=== PATIENT | female | born 1985 | race Caucasian/White ===

== ENCOUNTER → 2019-04-24 09:10 | Outpatient (BNVA) | payer MEDICAID, SELFPAY | PROVIDERS: PCP Nurse Practitioner; Visit Provider Obstetrics & Gynecology | DX: Z12.4 Encounter for screening for malignant neoplasm of cervix (principal); N76.0 Acute vaginitis; B96.89 Other specified bacterial agents as the cause of diseases classified elsewhere | CPT/HCPCS: 83036; 87491; 87591; 87661; 88175 ==

== ENCOUNTER → 2019-04-26 13:40 | Outpatient (BNVA) | payer MEDICAID, SELFPAY | PROVIDERS: PCP Nurse Practitioner; Referring Provider Obstetrics & Gynecology; Visit Provider Obstetrics & Gynecology | DX: N76.0 Acute vaginitis (principal); B96.89 Other specified bacterial agents as the cause of diseases classified elsewhere; R30.0 Dysuria | CPT/HCPCS: 81003; 87086; 87491; 87591 ==

== ENCOUNTER 2019-10-03 16:42 | Emergency (ER) | payer SELFPAY ==
--- NOTE | 2019-10-03 16:44 | XRR_ITS ---
PROCEDURE INFORMATION: Exam: XR Chest, 1 View Exam date and time: 10/03/2019 5:39 PM Age: 34 years old Clinical indication: Cough and dyspnea; Patient HX: Heart palpitations; Additional info: Dyspnea/cough TECHNIQUE: Imaging protocol: XR of the chest Views: 1 view. COMPARISON: No relevant prior studies available. FINDINGS: Lungs: Unremarkable. No consolidation. Pleural space: Unremarkable. No pleural effusion. No pneumothorax. Heart/Mediastinum: Unremarkable. No cardiomegaly. Bones/joints: Unremarkable. XR/XR chest 1V portable [id number] IMPRESSION: No acute findings.
[2019-10-03 17:00] VITALS: BP 156/104; PULSE 143; RESP 18; TEMP 36.9; O2SAT 96; BMI 37.8
[2019-10-03 17:33] VITALS: BP 177/120; PULSE 140; RESP 24; O2SAT 98
--- NOTE | 2019-10-03 17:34 | PC.NURSE ---
States she has been drinking a lot . Drink of choice is Vodka. Last drink approx 45 mins ago. Speech is not slurred.
--- NOTE | 2019-10-03 17:41 | ED_ITS ---
HPI - Arrhythmia/Palpitations General: Chief Complaint: Arrhythmia/Palpitations Stated Complaint: heart palps Time Seen by Provider: 10/03/19 17:28 History of Present Illness: HPI narrative: This patient is a 34-year-old female who presents today because of her heart racing. She said it is been going on for 4 days. She says that she has had this problem before when she has been drinking too much. She told triage that she had been drinking for 4 days but told me she is actually been drinking for the last 8 days. Her last drink was about 45 minutes prior to arrival. She is quite tearful about her drinking. She says she only came in today because her boyfriend finally made her come in. complaint: heart racing Onset (ago): day(s) (4) Duration: constant Severity: severe Associated symptoms: Deny nausea or vomiting Review of Systems General: Reports: 10 or more systems reviewed and unremarkable except in HPI and below Const: Denies: fever(s), chills, fatigue or malaise Eyes: Denies: change in vision ENMT: Denies: odynophagia Card: Reports: palpitations; Denies: chest pain or swelling of feet/ankles Resp: Denies: dyspnea, productive cough or non-productive cough GI: Denies: abdominal pain, nausea or vomiting : Denies: flank pain or difficulty voiding Musc: Denies: neck pain or back pain Skin/Breast: Denies: rash Neuro: Denies: headache(s), numbness in extremities or weakness in extremities Jay/Lymph: Denies: easy bruising or easy bleeding PFSH ED PFSH: Medical History Anxiety Surgical History Hx of section Family History Father Hypertension Suicide Psychiatric illness Hyperlipidemia Mother Hypertension Psychiatric illness Hyperlipidemia Grandmother Uterine cancer maternal Breast cancer paternal Psychiatric illness maternal Social History Smoking and tobacco status: current some day smoker cigarettes Packs smoked per day: 0.5 Alcohol intake: current Alcohol intake frequency: few times a week Alcohol type: hard liquor Adopted: No Caregiver/support person: No Lives independently: Yes Household members: spouse, family and children Housing: House Marital status: Life Partner Number of children: 1 Number of grandchildren: 0 Highest education level completed: Associate Degree: Academic Program service: No Current occupational status: employed and unemployed Pets and animals: No History of recent travel: No Agree to transfusion: Yes (04/03/2019) Female Reproductive History: Date of last menstrual period: 03/01/16 Physical Exam Const: COMMON NORMALS: no acute distress, patient oriented x3, no limitations and alert GENERAL APPEARANCE: cooperative and in distress HENMT: HEAD & SCALP: normal to inspection FACE & SINUS: normal facial exam Eye: GENERAL EYE: appearance normal, both eyes and all related structures Neck/C-Spine: COMMON NORMALS: supple, no meningeal signs and no JVD Chest: COMMONS NORMALS: normal inspection of the chest Resp: COMMON NORMALS: normal respiratory effort, No use of accessory muscles and clear to auscultation bilaterally AUSCULTATION: clear to auscultation bilaterally Cardio: COMMON NORMALS: no JVD, regular rhythm and No murmurs present (Cardio) RATE: tachycardic RHYTHM: regular rhythm GI: COMMON NORMALS: Normal to inspection, nondistended, normoactive bowel sounds present, Soft to palpation and non-tender INSPECTION: Yes normal to inspection AUSCULTATION: Yes normoactive bowel sounds PALPATION: Yes Soft to palpation Back/Pelvis: COMMON NORMALS: thoracic and lumbar spine normal to inspection Extremity: COMMON NORMALS: normal to inspection Neuro: COMMON NORMALS: patient oriented x3, moves all extremities, no focal motor deficits and no sensory deficits noted SENSORIUM/ORIENTATION: Yes alert MENINGEAL SIGNS: Yes no meningeal signs Psych: COMMON NORMALS: mental status grossly normal, cooperative and normal affect Skin: COMMON NORMALS: no rashes or lesions noted and turgor normal GENERAL SKIN EXAM: no rashes or lesions noted and turgor normal Course ED course: This patient understands that she has an alcohol problem. She is never had any counseling for it. We discussed various resources that were available to her. I do not think she needs to be admitted to the hospital. She is not suicidal or homicidal. After I put her up for discharge she did have some vomiting and was given more fluids and antinausea medicine. She felt better than and was discharged home. Vital Signs: Vital signs: Vital Signs Temperature 98.4 F 10/03/19 17:00 Pulse Rate 120 H 10/03/19 20:19 Respiratory Rate 20 H 10/03/19 20:19 Blood Pressure 159/100 10/03/19 20:19 Pulse Oximetry 98 10/03/19 20:19 MDM - Arrhythmia/Palpitations Lab Data: Labs: Lab Results 10/03/19 10/03/19 10/03/19 Range/Units 17:30 17:45 17:45 WBC 8.1 (4.0-10.0) 10^3/ uL RBC 4.67 (4.1-5.3) 10^6/u L Hgb 14.0 (11.5-15.3) g/dL Hct 42.9 (37.0-47.0) % MCV 91.9 (81-99) fL MCH 30.0 (28.0-34.0) pg MCHC 32.6 (30.0-36.0) g/dL RDW 12.8 (12.1-15.1) % Plt Count 397 (130-400) 10^3/c mm MPV 9.4 (7.4-10.4) fL Neut % (Auto) 54.8 % Lymph % (Auto) 34.4 % Reynolds % (Auto) 8.5 % Eos % (Auto) 0.7 % Baso % (Auto) 1.4 % Neut # (Auto) 4.45 (1.8-7.7) 10^3/u L Lymph # (Auto) 2.8 (0.8-4.8) 10^3/u L Reynolds # (Auto) 0.7 (0.2-0.9) 10^3/u L Eos # (Auto) 0.1 (0.0-0.8) 10^3/u L Baso # (Auto) 0.1 (0.0-0.1) 10^3/u L Nucleated RBC % (a uto) 0 % Nucleated RBCs # 0.0 /100WBC Specimen Type Arterial Sample Site Brachial, right ABG pH 7.45 (7.35-7.45) ABG pCO2 32.4 L (35-45) mmHg ABG pO2 90.3 (80.0-100.0) mmH g ABG HCO3 22.3 (22-26) mmol/L ABG Base Excess -0.9 (-2.0-2.0) mmol/ L Alberto Test N/a Hematocrit 45.2 (37-47) % O2 Delivery Device Room air Card Game Operator ID Gd Sodium 139 (136-145) mmol/L Potassium 3.6 (3.5-5.1) mmol/L Chloride 103 (98-107) mmol/L Carbon Dioxide 20 L (22-29) mmol/L Anion Gap 19.6 H (5-19) BUN 7 (6-20) mg/dL Creatinine 0.7 (0.5-0.9) mg/dL GFR Calculation 97.0 (90-130) mL/min Glucose 100 (65-115) mg/dL Calculated Osmolal ity 284 L (285-295) mOsm/k g Lactic Acid (0.5-2.2) mmol/L Calcium 9.0 (8.5-10.5) mg/dL Magnesium 2.0 (1.7-2.3) mg/dL Total Bilirubin 0.5 (0.15-1.2) mg/dL AST 50 H (0-32) U/L ALT 53 H (0-33) U/L Alkaline Phosphata se 57 (35-105) IU/L Total Protein 8.1 (6.6-8.7) g/dL Albumin 4.9 (3.5-5.2) g/dL Globulin 3.2 (1.3-4.6) g/dL Lipase 28 (13-60) U/L TSH 1.22 (0.27-4.20) uIU/ mL HCG, Qual (Negative) Urine Color (Yellow) Urine Appearance (CLEAR) Urine pH (5-7) Ur Specific Gravit y (1.005-1.030) Urine Protein (Negative) Urine Glucose (UA) (Normal) Urine Ketones (Negative) Urine Blood (Negative) Urine Nitrate (Negative) Urine Bilirubin (NEGATIVE) Urine Urobilinogen (Negative) mg/dL Ur Leukocyte Zita ase (Negative) Urine RBC (0-2) /hpf Urine WBC (0-5) /hpf Ur Squamous Epith Cells (0-5) Amorphous Sediment Urine Bacteria (NONE) Urine Mucus Ethyl Alcohol 338 H* (0-10) mg/dL 08/05/20 08/05/20 08/05/20 Range/Units 17:45 17:45 19:07 WBC (4.0-10.0) 10^3/ uL RBC (4.1-5.3) 10^6/u L Hgb (11.5-15.3) g/dL Hct (37.0-47.0) % MCV (81-99) fL MCH (28.0-34.0) pg MCHC (30.0-36.0) g/dL RDW (12.1-15.1) % Plt Count (130-400) 10^3/c mm MPV (7.4-10.4) fL Neut % (Auto) % Lymph % (Auto) % Reynolds % (Auto) % Eos % (Auto) % Baso % (Auto) % Neut # (Auto) (1.8-7.7) 10^3/u L Lymph # (Auto) (0.8-4.8) 10^3/u L Reynolds # (Auto) (0.2-0.9) 10^3/u L Eos # (Auto) (0.0-0.8) 10^3/u L Baso # (Auto) (0.0-0.1) 10^3/u L Nucleated RBC % (a uto) % Nucleated RBCs # /100WBC Specimen Type Sample Site ABG pH (7.35-7.45) ABG pCO2 (35-45) mmHg ABG pO2 (80.0-100.0) mmH g ABG HCO3 (22-26) mmol/L ABG Base Excess (-2.0-2.0) mmol/ L Alberto Test Hematocrit (37-47) % O2 Delivery Device Card Game Operator ID Sodium (136-145) mmol/L Potassium (3.5-5.1) mmol/L Chloride (98-107) mmol/L Carbon Dioxide (22-29) mmol/L Anion Gap (5-19) BUN (6-20) mg/dL Creatinine (0.5-0.9) mg/dL GFR Calculation (90-130) mL/min Glucose (65-115) mg/dL Calculated Osmolal ity (285-295) mOsm/k g Lactic Acid 3.4 H (0.5-2.2) mmol/L Calcium (8.5-10.5) mg/dL Magnesium (1.7-2.3) mg/dL Total Bilirubin (0.15-1.2) mg/dL AST (0-32) U/L ALT (0-33) U/L Alkaline Phosphata se (35-105) IU/L Total Protein (6.6-8.7) g/dL Albumin (3.5-5.2) g/dL Globulin (1.3-4.6) g/dL Lipase (13-60) U/L TSH (0.27-4.20) uIU/ mL HCG, Qual Negative (Negative) Urine Color Yellow (Yellow) Urine Appearance Clear (CLEAR) Urine pH 6 (5-7) Ur Specific Gravit y 1.010 (1.005-1.030) Urine Protein Neg (Negative) Urine Glucose (UA) Norm (Normal) Urine Ketones Negative (Negative) Urine Blood 2+ H (Negative) Urine Nitrate Negative (Negative) Urine Bilirubin Neg (NEGATIVE) Urine Urobilinogen Neg (Negative) mg/dL Ur Leukocyte Zita ase Negative (Negative) Urine RBC 0-4 H (0-2) /hpf Urine WBC 0-4 H (0-5) /hpf Ur Squamous Epith Cells 0-4 H (0-5) Amorphous Sediment Not Reportable Urine Bacteria Trace (NONE) Urine Mucus 1+ Ethyl Alcohol (0-10) mg/dL Discharge Plan Discharge Patient Disposition: Home Clinical Impression: Sinus tachycardia Alcohol intoxication Qualifiers: Complication of substance-induced condition: with unspecified complication Qualified Code(s): F10.929 - Alcohol use, unspecified with intoxication, unspecified Condition: Stable Prescriptions: New bupropion HCl 150 mg tablet extended release 24 hr 150 mg PO QAM Qty: 30 RF: 3 fluoxetine 60 mg tablet 60 mg PO DAILY Qty: 30 RF: 3 No Action Nexplanon 68 mg implant See Rx Instructions .ROUTE .COMPLEX RF: 0 bupropion HCl [Wellbutrin XL] 150 mg tablet extended release 24 hr 150 mg PO DAILY 30 Days Qty: 30 RF: 1 Discharge Orders: Discharge Order (Routine); Ordered 10/03/19 Ordered By: Cora Cruz Discharge Diet: Usual diet Discharge Activity: Resume usual activity Patient Instructions: Abuse of Alcohol (ED) Activity Restrictions/Additional Instructions: Please return to the emergency department for any new or worse symptoms. Our manager of case will contact you in the next few days to help with setting up follow-up. Discharge Date/Time: 10/03/19 21:04 Coding Level of Care Code ED Casing Running Machine Tender for Krzysztof Fwsheba Exam Comprehensive
[2019-10-03 17:45] LABS: ABG PCO2 32.4 mmHg (35-45); ABG PH Result 7.45 (7.35-7.45); Arterial Blood Gas Hematocrit 45.2 % (37-47); Base Excess ABG -0.9 mmol/L (-2.0-2.0); Blood Gas Operator Identificat GD; Blood Gas Sample Site Brachial, right; Blood Gas Sample Type Arterial; HCO3 ABG 22.3 mmol/L (22-26); Oxygen Device ROOM AIR; PO2 ABG 90.3 mmHg (80.0-100.0)
[2019-10-03 17:52] VITALS: BP 147/95; PULSE 129; RESP 18; O2SAT 98
[2019-10-03 17:55] LABS: Basophils # 0.1 10^3/uL (0.0-0.1); Basophils % 1.4 %; Eosinophils # 0.1 10^3/uL (0.0-0.8); Eosinophils % 0.7 %; Hematocrit 42.9 % (37.0-47.0); Lymphocytes # 2.8 10^3/uL (0.8-4.8); Lymphocytes % 34.4 %; Mean Corpuscular HGB Conc 32.6 g/dL (30.0-36.0); Mean Corpuscular Volume 91.9 fL (81-99); Mean Platelet Volume 9.4 fL (7.4-10.4); Monocytes # 0.7 10^3/uL (0.2-0.9); Monocytes % 8.5 %; Neutrophils # 4.45 10^3/uL (1.8-7.7); Neutrophils % 54.8 %; Nucleated Red Blood Cells % 0 %; Platelet Count 397 10^3/cmm (130-400); Red Blood Count 4.67 10^6/uL (4.1-5.3); Red Cell Distribution Width 12.8 % (12.1-15.1); White Blood Count 8.1 10^3/uL (4.0-10.0)
[2019-10-03 18:11] LABS: HCG, Serum Qual Negative (Negative)
[2019-10-03] MEDS: sodium chloride 0.9% 1,000 ML 999 ML IV ×2 (18:11→20:27)
[2019-10-03] MEDS: ondansetron 2 mg/ML SDV 2 mL 4 MG IVP (18:11)
[2019-10-03 18:18] VITALS: BP 159/111; PULSE 119; RESP 20; O2SAT 96
[2019-10-03 18:24] LABS: Lactic Sepsis W/Reflex 3.4 mmol/L (0.5-2.2)
[2019-10-03 18:32] LABS: Alanine Aminotransferase 53 U/L (0-33); Albumin Level 4.9 g/dL (3.5-5.2); Alkaline Phosphatase 57 IU/L (35-105); Anion Gap 19.6 (5-19); Aspartate Amino Transferase 50 U/L (0-32); Blood Urea Nitrogen 7 mg/dL (6-20); Carbon Dioxide 20 mmol/L (22-29); Chloride 103 mmol/L (98-107); Globulin 3.2 g/dL (1.3-4.6); Glucose 100 mg/dL (65-115); Lipase 28 U/L (13-60); Osmolality Calculated 284 mOsm/kg (285-295); Potassium 3.6 mmol/L (3.5-5.1); Sodium 139 mmol/L (136-145); Thyroid Stimulating Hormone 1.22 uIU/mL (0.27-4.20); Total Bilirubin 0.5 mg/dL (0.15-1.2); Total Protein 8.1 g/dL (6.6-8.7)
[2019-10-03 18:36] LABS: Alcohol Level 338 mg/dL (0-10)
[2019-10-03] MEDS: lactated ringers 1,000 ML 150 ML IV (19:01)
[2019-10-03 20:02] LABS: Add Urine Microscopic? YES; Bacteria Urine TRACE; Bilirubin Urine Neg (NEGATIVE); Blood Urine 2+ (Negative); Glucose Urine UA Norm (Normal); Ketones Urine Negative (Negative); Leukocyte Esterase Urine Negative (Negative); Nitrate Urine Negative (Negative); Protein Urine Neg (Negative); RBC Urine 0-4 /hpf (0-2); Squamous Epithelial Cell Urine 0-4 (0-5); Urine Appearance Clear (CLEAR); Urine Color Yellow (Yellow); Urobilinogen Urine Neg (Negative); WBC Urine 0-4 /hpf (0-5); pH Urine 6 (5-7)
[2019-10-03 20:03] LABS: Add Urine Culture? No; Mucus Urine 1+
[2019-10-03 20:19] VITALS: BP 159/100; PULSE 120; RESP 20; O2SAT 98
[2019-10-03] MEDS: metoclopramide 5 mg/mL SDV 2 mL 10 MG IVP (20:26)
--- NOTE | 2019-10-04 10:30 | DCPLANNER ---
complex manager had message to speak with patient about follow up. complex manager called patient, unable to speak with patient at this time, a voicemail was left for patient to return housing case manager phone call.
== END 2019-10-03 21:04 | disposition home or self-care (01) ==
PROVIDERS: Family Medicine; Emergency Provider Emergency Medicine
DX: R00.0 Tachycardia, unspecified (principal); F10.929 Alcohol use, unspecified with intoxication, unspecified; F17.210 Nicotine dependence, cigarettes, uncomplicated
CPT/HCPCS: 12345; 36600; 71045; 80053; 80307; 81001; 82803; 83605; 83690; 83735; 84443; 84703; 85025; 96365; 96366; 96375; 99283; 99284; J2405; J2765; J7030

== ENCOUNTER → 2020-12-19 13:28 | Outpatient (BNVA) | payer SELFPAY | PROVIDERS: PCP Nurse Practitioner Family; Visit Provider Nurse Practitioner Family | DX: J02.9 Acute pharyngitis, unspecified (principal) | CPT/HCPCS: 87880 ==

== ENCOUNTER 2021-01-28 12:18 | Emergency (ER) | payer SELFPAY ==
[2021-01-28 12:50] VITALS: BP 152/98; PULSE 113; RESP 18; O2SAT 97; BMI 39.9
[2021-01-28 14:23] LABS: HCG Qualitative Urine. Negative (Negative)
[2021-01-28 15:24] VITALS: BP 133/95; PULSE 104; RESP 20; O2SAT 98
--- NOTE | 2021-01-28 17:17 | W.ED.ALCOHOL ---
HPI - Alcohol General: Chief Complaint: Alcohol Stated Complaint: DRANK LAST PM: CHEST HURTING,HEART RACING,FAINT Time Seen by Provider: 01/28/21 17:17 History of Present Illness: HPI narrative: Ms. Craey is a 35-year-old lady with history of hypertension and alcohol abuse who presents to the emergency department due to chest pain and racing heart. She reports over the past few years she has been drinking more and is now a daily drinker. She endorses 5-10 drinks per day. She reports that she does this to cope with stressors however desires to quit. She has associated abdominal discomfort and vomiting. She describes burning chest pain without associated shortness of breath. No history of alcohol withdrawal seizures. No other high risk cardiac features and history. Overall symptoms have continued. Intensity is moderate. No other significant changes in health, infectious symptoms, exacerbating, alleviating, or provoking factors identified. Review of Systems General: Reports: 10 or more systems reviewed and unremarkable except in HPI and below PFSH ED PFSH: Medical History Anxiety Surgical History Hx of section Family History Father Hypertension Suicide Psychiatric illness Hyperlipidemia Mother Hypertension Psychiatric illness Hyperlipidemia Grandmother Uterine cancer maternal Breast cancer paternal Psychiatric illness maternal Social History Alcohol intake: current Alcohol intake frequency: few times a week Alcohol type: hard liquor Adopted: No Caregiver/support person: No Lives independently: Yes Household members: spouse, family and children Housing: House Marital status: Life Partner Number of children: 1 Number of grandchildren: 0 Highest education level completed: Associate Degree: Academic Program service: No Current occupational status: employed and unemployed Pets and animals: No History of recent travel: No Agree to transfusion: Yes (04/03/2019) Female Reproductive History: Date of last menstrual period: 03/01/16 Physical Exam Narrative: EXAM NARRATIVE: GENERAL/CONSTITUTIONAL -mildly ill-appearing. No acute distress. Eyes -no scleral icterus, no conjunctival injection ENMT - Atraumatic external nose and ears. Moist mucous membranes NECK - supple. trachea midline CARDIOVASCULAR -tachycardic rate and regular rhythm peripheral pulses 2+ and equal RESPIRATORY -clear to auscultation bilaterally. No retractions or accessory muscle use. ABDOMEN/GI - Nontender/Nondistended. No tenderness to percussion or evidence of peritonitis MSK - Extremities without obvious deformity or tenderness to palpation SKIN - Warm, Dry. No jaundice. NEURO - alert and appropriately oriented. Moves all extremities equally. Course ED course: - Patient was seen and evaluated by me at bedside - Patient placed on cardiac monitors, IV access obtained - Initial evaluation notable for tachycardic, nontoxic, no evidence of jaundice. - Fluids ordered - Labs notable for mild leukocytosis which is likely reactive. No transaminitis or other significant abnormality identified. - Negative chest x-ray. Based on clinical exam and patient's description of symptoms I do not believe that abdominal imaging is warranted at this time. - Upon serial reexamination after treatment the patient was improved however she did have to leave before completing IV fluids as her was called in to work - Based on patient history, evaluation, labs, and imaging as interpreted the most likely cause of the patient's condition is alcohol abuse. Low risk by heart score. - The results of ED evaluation were discussed with the patient including prescriptions and/or symptomatic cares (if applicable) including appropriate and responsible use, followup plan, and return precautions. The patient verbalized understanding and felt safe for discharge. - Patient discharged in satisfactory condition. Vital Signs: Vital signs: Vital Signs Pulse Rate 78 01/28/21 20:43 Respiratory Rate 18 01/28/21 20:43 Blood Pressure 124/78 01/28/21 20:43 Pulse Oximetry 99 01/28/21 20:43 MDM - Alcohol Medical Records: Attestation: I reviewed the patient's medical records. Lab Data: Attestation: I reviewed the patient's lab results. Labs: Lab Results 01/28/21 01/28/21 01/28/21 14:00 16:27 16:27 WBC 13.0 10^3/uL H 10 ^3/uL (4.0-10.0) RBC 4.85 10^6/uL 10^6 /uL (4.1-5.3) Hgb 14.3 g/dL g/dL (11.5-15.3) Hct 43.4 % % (37.0-47.0) MCV 89.5 fl fl (81-99) MCH 29.5 pg pg (28.0-34.0) MCHC 32.9 g/dL g/dL (30.0-36.0) RDW 12.8 % % (12.1-15.1) Plt Count 386 10^3/cmm 10^3 /cmm (130-400) MPV 10.5 fL H fL (7.4-10.4) Neut % (Auto) 67.0 % % Lymph % (Auto) 22.1 % % [place] % (Auto) 7.6 % % Eos % (Auto) 2.1 % % Baso % (Auto) 0.7 % % Neut # (Auto) 8.74 10^3/uL H 10 ^3/uL (1.8-7.7) Lymph # (Auto) 2.9 10^3/uL 10^3/ uL (0.8-4.8) [place] # (Auto) 1.0 10^3/uL H 10^ 3/uL (0.2-0.9) Eos # (Auto) 0.3 10^3/uL 10^3/ uL (0.0-0.8) Baso # (Auto) 0.1 10^3/uL 10^3/ uL (0.0-0.1) Nucleated RBC % (a uto) 0 % % Nucleated RBCs # 0.0 /100WBC /100W BC Sodium 136 mmol/L mmol/L (136-145) Potassium 3.8 mmol/L mmol/L (3.5-5.1) Chloride 102 mmol/L mmol/L (98-107) Carbon Dioxide 21 mmol/L L mmol/ L (22-29) Anion Gap 16.8 (5-19) BUN 10 mg/dL mg/dL (6-20) Creatinine 0.6 mg/dL mg/dL (0.5-0.9) GFR Calculation 115.1 mL/min mL/m in (90-130) Glucose 79 mg/dL mg/dL (65-115) Calculated Osmolal ity 280 mOsm/kg L mOs m/kg (285-295) Calcium 8.9 mg/dL mg/dL (8.5-10.5) Total Bilirubin 0.7 mg/dL mg/dL (0.15-1.2) AST 21 U/L U/L (0-32) ALT 33 U/L U/L (0-33) Alkaline Phosphata se 65 IU/L IU/L (35-105) Total Protein 7.8 g/dL g/dL (6.6-8.7) Albumin 4.6 g/dL g/dL (3.5-5.2) Globulin 3.2 g/dL g/dL (1.3-4.6) Lipase 19 U/L U/L (13-60) HCG, Qual Negative (Negative) Discharge Plan Discharge Patient Disposition: Home Clinical Impression: Alcohol abuse Condition: Stable Prescriptions: New chlordiazepoxide HCl 25 mg capsule See Rx Instructions .ROUTE .COMPLEX Qty: 15 RF: 0 No Action Nexplanon 68 mg implant See Rx Instructions .ROUTE .COMPLEX RF: 0 albuterol sulfate [ProAir HFA] 90 mcg/actuation HFA aerosol inhaler 2 puff inhalation QID PRN (Reason: shortness of breath or wheezing) Qty: 6.7 RF: 0 prednisone 20 mg tablet 20 mg PO BID Qty: 6 RF: 0 promethazine-DM 6.25-15 mg/5 mL syrup 5 - 10 ml PO Q6H PRN (Reason: cough) Qty: 118 RF: 0 bupropion HCl [Wellbutrin XL] 150 mg tablet extended release 24 hr 150 mg PO DAILY 30 Days Qty: 30 RF: 1 bupropion HCl 150 mg tablet extended release 24 hr 150 mg PO QAM Qty: 30 RF: 3 fluoxetine 60 mg tablet 60 mg PO DAILY Qty: 30 RF: 3 Discharge Orders: Discharge ED (Routine); Ordered 01/28/21 Ordered By: Ba Bush Discharge Diet: Usual diet Discharge Activity: Resume usual activity Patient Instructions: Alcohol Withdrawal (ED) Activity Restrictions/Additional Instructions: Thank you for visiting the emergency department. You were seen and evaluated for alcohol abuse and withdrawal symptoms. Please follow-up with your primary care provider. Please return to the emergency department for worsening symptoms, shakiness, racing heart, seizures, confusion, or anything else that you are concerned about and feel needs emergency department evaluation. Coding Level of Care Code ED Fun House Operator for Krzysztof Aburto
[2021-01-28 17:36] LABS: Basophils # 0.1 10^3/uL (0.0-0.1); Basophils % 0.7 %; Eosinophils # 0.3 10^3/uL (0.0-0.8); Eosinophils % 2.1 %; Hematocrit 43.4 % (37.0-47.0); Hemoglobin 14.3 g/dL (11.5-15.3); Lymphocytes # 2.9 10^3/uL (0.8-4.8); Lymphocytes % 22.1 %; Mean Corpuscular HGB Conc 32.9 g/dL (30.0-36.0); Mean Corpuscular Hemoglobin 29.5 pg (28.0-34.0); Mean Corpuscular Volume 89.5 fl (81-99); Mean Platelet Volume 10.5 fL (7.4-10.4); Monocytes % 7.6 %; Neutrophils # 8.74 10^3/uL (1.8-7.7); Nucleated Red Blood Cells % 0 %; Platelet Count 386 10^3/cmm (130-400); Red Blood Count 4.85 10^6/uL (4.1-5.3); Red Cell Distribution Width 12.8 % (12.1-15.1)
[2021-01-28 17:48] LABS: Alanine Aminotransferase 33 U/L (0-33); Albumin Level 4.6 g/dL (3.5-5.2); Alkaline Phosphatase 65 IU/L (35-105); Anion Gap 16.8 (5-19); Aspartate Amino Transferase 21 U/L (0-32); Blood Urea Nitrogen 10 mg/dL (6-20); Calcium 8.9 mg/dL (8.5-10.5); Carbon Dioxide 21 mmol/L (22-29); Chloride 102 mmol/L (98-107); Globulin 3.2 g/dL (1.3-4.6); Glomerular Filtration Rate 115.1 mL/min (90-130); Glucose 79 mg/dL (65-115); Lipase 19 U/L (13-60); Osmolality Calculated 280 mOsm/kg (285-295); Potassium 3.8 mmol/L (3.5-5.1); Sodium 136 mmol/L (136-145); Total Bilirubin 0.7 mg/dL (0.15-1.2); Total Protein 7.8 g/dL (6.6-8.7)
--- NOTE | 2021-01-28 17:57 | XRR_ITS ---
PROCEDURE INFORMATION: Exam: XR Chest Exam date and time: 01/28/2021 5:57 PM Age: 35 years old Clinical indication: Pain; Angina pectoris; Additional info: Palpatations, worried about alcohol withdrawl TECHNIQUE: Imaging protocol: XR of the chest. Views: 1 view. Total images: 1 COMPARISON: CR XR chest 1V portable [id number] 10/03/2019 5:24 PM FINDINGS: Lungs: No visible active interstitial or alveolar airspace disease. Pleural spaces: Unremarkable. No pleural effusion. No pneumothorax. Heart/Mediastinum: Cardiac structures and configuration within normal limits. Bones/joints: Unremarkable. Other findings: Obesity. XR/XR chest 1V portable [id number] IMPRESSION: Nonacute. Radiation Dose CTDIVOL = (mGy): DLP = (mGy-cm)
[2021-01-28] MEDS: sodium chloride 0.9% 1,000 ML 999 ML IV (18:36)
[2021-01-28] MEDS: ondansetron 2 mg/ML SDV 2 mL 4 MG IVP ×2 (18:36→20:17)
[2021-01-28 18:37] VITALS: PULSE 82; RESP 15; O2SAT 98
[2021-01-28 20:43] VITALS: BP 124/78; PULSE 78; RESP 18; O2SAT 99
== END 2021-01-28 20:44 | disposition home or self-care (01) ==
PROVIDERS: Emergency Provider Emergency Medicine
DX: F10.10 Alcohol abuse, uncomplicated (principal)
CPT/HCPCS: 71045; 80053; 81025; 83690; 85025; 96361; 96374; 96376; 99284; J2405; J7030

== ENCOUNTER → 2021-12-22 14:25 | Outpatient (BNVA) | payer SELFPAY | PROVIDERS: Visit Provider Nurse Practitioner Family | DX: N39.0 Urinary tract infection, site not specified (principal); R30.0 Dysuria; Z11.3 Encounter for screening for infections with a predominantly sexual mode of transmission | CPT/HCPCS: 81000; 87491; 87591; 87661 ==

== ENCOUNTER 2022-01-12 09:57 | Emergency (ER) | payer SELFPAY ==
[2022-01-12 09:58] VITALS: BP 194/110; PULSE 125; RESP 21; TEMP 37.1; O2SAT 98; BMI 42.0
[2022-01-12 10:29] LABS: Basophils # 0.1 10^3/uL (0.0-0.1); Basophils % 0.7 %; Eosinophils # 0.2 10^3/uL (0.0-0.8); Eosinophils % 2.8 %; Hematocrit 43.9 % (37.0-47.0); Hemoglobin 14.5 g/dL (11.5-15.3); Lymphocytes # 1.5 10^3/uL (0.8-4.8); Lymphocytes % 19.3 %; Mean Corpuscular Volume 90.7 fl (81-99); Mean Platelet Volume 10.5 fL (7.4-10.4); Monocytes # 0.5 10^3/uL (0.2-0.9); Neutrophils # 5.25 10^3/uL (1.8-7.7); Neutrophils % 69.8 %; Nucleated Red Blood Cells % 0 %; Platelet Count 277 10^3/cmm (130-400); Red Blood Count 4.84 10^6/uL (4.1-5.3); Red Cell Distribution Width 12.5 % (12.1-15.1); White Blood Count 7.5 10^3/uL (4.0-10.0)
--- NOTE | 2022-01-12 10:35 | W.ED.ALCOHOL ---
Documented by User: KELLI Gonzalez 01/13/22 07:17 HPI - Alcohol General: Chief Complaint: Abdominal Pain Stated Complaint: too much alcohol, abd pain Time Seen by Provider: 01/12/22 10:06 History of Present Illness: Patient is a 36-year-old female who comes to the ED with alcohol withdrawal symptoms. Patient admits to being a heavy daily alcohol user and over the past week she says she has been drinking more than usual. Her last drink was at 9:15 PM last night. Today she woke up not feeling well. She is hearing some voices, feels shaky, anxious and has had some nausea and vomiting as well. Denies any past history of DT or any other complications during alcohol detox. Associated symptoms: Reports involuntary movements (Shaky hands bilaterally-alcoholic tremors), nausea and vomiting; Deny abdominal pain or suicidal ideation Review of Systems Const: Reports: malaise; Denies: fever(s), chills or fatigue Eyes: Denies: change in vision or eye discomfort ENMT: Denies: throat pain, odynophagia, nasal discharge or nasal congestion Card: Denies: chest pain, palpitations, edema, swelling of feet/ankles, dyspnea on exertion or orthopnea Resp: Denies: dyspnea, productive cough or non-productive cough GI: Reports: nausea and vomiting; Denies: abdominal pain, diarrhea, constipation or hematochezia : Denies: flank pain, dysuria or hematuria Musc: Denies: neck pain, back pain or extremity swelling Skin/Breast: Denies: rash or new lesions Neuro: Reports: involuntary movements (Shaky hands bilaterally-alcoholic tremors); Denies: headache(s), numbness in extremities or weakness in extremities Psych: Reports: anxiety; Denies: suicidal ideation [facility] ED PFSH: Medical History Anxiety Psychiatric care Surgical History Hx of section Family History Father Hypertension Suicide Psychiatric illness Hyperlipidemia Mother Hypertension Psychiatric illness Hyperlipidemia Grandmother Uterine cancer maternal Breast cancer paternal Psychiatric illness maternal Social History Smoking and tobacco status: current every day smoker cigarettes Packs smoked per day: 0.5 Years cigarettes smoked: 17 Quit status (tobacco): has tried quititng Number of times tried to quit tobacco: 3 Second hand smoke exposure: No Smoking risk assessment/counseling performed?: No Alcohol intake: current Alcohol intake frequency: 3 or more drinks per day Alcohol type: hard liquor Desire information about alcohol rehabilitation?: No Counseling given: No Desire information about substance/drug rehabilitation?: No Counseling given: No Female Reproductive History: Date of last menstrual period: 03/01/16 Physical Exam Const: COMMON NORMALS: patient oriented x3 and alert GENERAL APPEARANCE: cooperative and anxious; no odor of alcohol detected NUTRITIONAL APPEARANCE: obese HENMT: COMMON NORMALS: normocephalic HEAD & SCALP: normocephalic MOUTH: Normal oral and palatal mucosa present THROAT: posterior oropharynx normal and uvula midline Eye: COMMON NORMALS: Equal, round and reactive pupils present, EOMs intact bilaterally and conjunctivae normal CONJUNCTIVA: Yes conjunctivae normal PUPIL: Yes Equal, round and reactive pupils present Neck/C-Spine: COMMON NORMALS: supple GENERAL: Yes normal visual inspection Resp: COMMON NORMALS: normal respiratory effort, No retractions, No use of accessory muscles and clear to auscultation bilaterally AUSCULTATION: clear to auscultation bilaterally Cardio: COMMON NORMALS: regular rate, regular rhythm, S1 normal heart sound present, S2 normal heart sound present, No gallops present (Cardio), No clicks present (Cardio), No murmurs present (Cardio) and Peripheral pulses 2+ throughout RATE: regular rate RHYTHM: regular rhythm HEART SOUNDS: S1 normal heart sound present and S2 normal heart sound present PERIPHERAL PULSES: Peripheral pulses 2+ throughout GI: COMMON NORMALS: Normal to inspection, nondistended, normoactive bowel sounds present, Soft to palpation, non-tender and no masses PALPATION: Yes Soft to palpation : COMMON NORMALS: Yes no CVA tenderness BLADDER/KIDNEY EXAM: Yes no CVA tenderness Back/Pelvis: COMMON NORMALS: no CVA tenderness Extremity: NARRATIVE EXTREMITY EXAM: Bilateral hands?alcoholic tremors noted. Neuro: COMMON NORMALS: patient oriented x3 SENSORIUM/ORIENTATION: Yes alert GAIT: Yes Normal gait present Skin: GENERAL SKIN EXAM: dry skin Course Vital Signs: Vital signs: Vital Signs Temperature 98.8 F 01/12/22 09:58 Pulse Rate 89 01/12/22 10:40 Respiratory Rate 20 H 01/12/22 10:40 Blood Pressure 145/113 01/12/22 10:40 Pulse Oximetry 98 01/12/22 10:40 Oxygen Delivery Me thod 01/12/22 09:58 MDM - Alcohol Medical Decision Making Patient is a 36-year-old female who comes to the ED with alcohol withdrawal symptoms. She denies any history of past DTs or any other complications during alcohol detox. Last drink was at 9:15 PM last night. She is having symptoms of anxiety, bilateral hand tremors, nausea and vomiting. Denies any SI. Patient's pulse was tacky at 125 but the rest of her vitals are stable during triage. Patient appears nontoxic and in no acute distress. She is alert and oriented no smell of alcohol noted. She does appear anxious with visible bilateral hand tremors. Rest of the exam is benign. Labs are unremarkable and blood alcohol level was below 10. She was given a liter of IV fluids, thiamine, Zofran and Ativan and her withdrawal symptoms improved. I discussed with patient about alcohol detox and she stated that she does want to stop drinking. Patient was diagnosed with alcohol withdrawal symptoms and she was stable for discharge home. She was sent home with a prescription for Librium and I stressed with the patient that she cannot drink alcohol while taking Librium. Told her to follow-up with her PCP within the next week for reevaluation. She understood and agreed with plan. Lab Data I reviewed the patient's lab results. : 01/12/22 10:15 01/12/22 10:44 Laboratory Results WBC 7.5 10^3/uL (4.0-10.0) 01/12/22 10:15 RBC 4.84 10^6/uL (4.1-5.3) 01/12/22 10:15 Hgb 14.5 g/dL (11.5-15.3) 01/12/22 10:15 Hct 43.9 % (37.0-47.0) 01/12/22 10:15 MCV 90.7 fl (81-99) 01/12/22 10:15 MCH 30.0 pg (28.0-34.0) 01/12/22 10:15 MCHC 33.0 g/dL (30.0-36.0) 01/12/22 10:15 RDW 12.5 % (12.1-15.1) 01/12/22 10:15 Plt Count 277 10^3/cmm (130-400) 01/12/22 10:15 MPV 10.5 fL (7.4-10.4) H 01/12/22 10:15 Neut % (Auto) 69.8 % 01/12/22 10:15 Lymph % (Auto) 19.3 % 01/12/22 10:15 [place] % (Auto) 7.0 % 01/12/22 10:15 Eos % (Auto) 2.8 % 01/12/22 10:15 Baso % (Auto) 0.7 % 01/12/22 10:15 Neut # (Auto) 5.25 10^3/uL (1.8-7.7) 01/12/22 10:15 Lymph # (Auto) 1.5 10^3/uL (0.8-4.8) 01/12/22 10:15 [place] # (Auto) 0.5 10^3/uL (0.2-0.9) 01/12/22 10:15 Eos # (Auto) 0.2 10^3/uL (0.0-0.8) 01/12/22 10:15 Baso # (Auto) 0.1 10^3/uL (0.0-0.1) 01/12/22 10:15 Nucleated RBC % (auto) 0 % 01/12/22 10:15 Nucleated RBCs # 0.0 /100WBC 01/12/22 10:15 Sodium 134 mmol/L (136-145) L 01/12/22 10:44 Potassium 4.0 mmol/L (3.5-5.1) 01/12/22 10:44 Chloride 100 mmol/L (98-107) 01/12/22 10:44 Carbon Dioxide 22 mmol/L (22-29) 01/12/22 10:44 Anion Gap 16.0 (5-19) 01/12/22 10:44 BUN 7 mg/dL (6-20) 01/12/22 10:44 Creatinine 0.6 mg/dL (0.5-0.9) 01/12/22 10:44 GFR Calculation 114.4 mL/min (90-130) 01/12/22 10:44 Glucose 98 mg/dL (65-115) 01/12/22 10:44 Calculated Osmolality 276 mOsm/kg (285-295) L 01/12/22 10:44 Calcium 8.9 mg/dL (8.5-10.5) 01/12/22 10:44 Total Bilirubin 0.6 mg/dL (0.15-1.2) 01/12/22 10:44 AST 101 U/L (0-32) H 01/12/22 10:44 ALT 69 U/L (0-33) H 01/12/22 10:44 Alkaline Phosphatase 84 U/L (35-105) 01/12/22 10:44 Total Protein 7.0 g/dL (6.6-8.7) 01/12/22 10:44 Albumin 4.0 g/dL (3.5-5.2) 01/12/22 10:44 Globulin 3.0 g/dL (1.3-4.6) 01/12/22 10:44 Lipase 23 U/L (13-60) 01/12/22 10:44 HCG, Qual Negative (Negative) 01/12/22 10:15 Urine Color Marga (Yellow) 01/12/22 10:20 Urine Appearance Clear (CLEAR) 01/12/22 10:20 Urine pH 6.5 (5-7) 01/12/22 10:20 Ur Specific [place] 1.015 (1.005-1.030) 01/12/22 10:20 Urine Protein Neg (Negative) 01/12/22 10:20 Urine Glucose (UA) Norm (Normal) 01/12/22 10:20 Urine Ketones Negative (Negative) 01/12/22 10:20 Urine Blood Trace (Negative) H 01/12/22 10:20 Urine Nitrate Negative (Negative) 01/12/22 10:20 Urine Bilirubin Neg (Negative) 01/12/22 10:20 Urine Urobilinogen Neg mg/dL (Negative) 01/12/22 10:20 Ur Leukocyte Esterase Negative (Negative) 01/12/22 10:20 Urine RBC Rare /hpf (0-2) 01/12/22 10:20 Urine WBC None /hpf (0-5) 01/12/22 10:20 Ur Squamous Epith Cells 5-10 /hpf (0-5) H 01/12/22 10:20 Amorphous Sediment Not Reportable 01/12/22 10:20 Urine Bacteria R /hpf (NONE) 01/12/22 10:20 Urine Trichomonas 1+ /hpf H 01/12/22 10:20 Ethyl Alcohol < 10 mg/dL (0-10) 01/12/22 10:44 Discharge Plan Discharge Patient Disposition: Home Clinical Impression: Alcohol withdrawal syndrome Qualifiers: Complication of substance-induced condition: uncomplicated Qualified Code(s): F10.930 - Alcohol use, unspecified with withdrawal, uncomplicated Condition: Stable Prescriptions: New ondansetron 4 mg tablet,disintegrating 4 mg PO Q8H PRN (Reason: nausea and vomiting) Qty: 20 0RF No Action naltrexone 50 mg tablet 25 mg PO DAILY Qty: 15 2RF bupropion HCl [Wellbutrin XL] 150 mg tablet extended release 24 hr 150 mg PO DAILY 30 Days Qty: 30 2RF fluoxetine 20 mg capsule 60 mg PO DAILY Qty: 90 2RF chlordiazepoxide HCl 25 mg capsule 25 mg PO QID PRN (Reason: anxiety) Qty: 20 0RF nitrofurantoin monohyd/m-cryst [Macrobid] 100 mg capsule 100 mg PO Q12H 7 Days Qty: 14 0RF Rx Instructions: must administer with a meal/food metronidazole 500 mg tablet 500 mg PO BID Qty: 14 0RF Discharge Orders: Discharge ED (Routine); Ordered 01/12/22 Ordered By: David Akhtar Discharge Diet: Regular Discharge Activity: Increase activity as tolerated Patient Instructions: Alcohol Withdrawal Activity Restrictions/Additional Instructions: Follow-up with medical provider as directed in the next 7 days for reevaluation. Do not drink any alcohol while taking Librium. Take medications as prescribed for alcohol withdrawal symptoms. Return to the ER or your medical provider if condition worsens. Please read and understand discharge instructions. Thank you for choosing [facility] for your healthcare needs today. Please realize this is an emergency room and that we are providing you with a medical screening exam and this may not be complete and all inclusive of all the testing and or work up that you may need to determine your ailment or severity of your illness. It is very important that you follow up as instructed or that you return to the Emergency Department should you have concerns or if your condition changes or worsens in any way. Stand Alone Forms: Work/School Release Coding Level of Care Code ED Silviculturist for Chg Fwd Exam Comprehensive Documented by User: Luciano Mehta DO 01/13/22 17:20 HPI - Alcohol General: Chief Complaint: Abdominal Pain Stated Complaint: too much alcohol, abd pain Time Seen by Provider: 01/12/22 10:06 PFSH ED PFSH: Medical History Anxiety Psychiatric care Surgical History Hx of section Family History Father Hypertension Suicide Psychiatric illness Hyperlipidemia Mother Hypertension Psychiatric illness Hyperlipidemia Grandmother Uterine cancer maternal Breast cancer paternal Psychiatric illness maternal Social History Smoking and tobacco status: current every day smoker cigarettes Packs smoked per day: 0.5 Years cigarettes smoked: 17 Quit status (tobacco): has tried quititng Number of times tried to quit tobacco: 3 Second hand smoke exposure: No Smoking risk assessment/counseling performed?: No Alcohol intake: current Alcohol intake frequency: 3 or more drinks per day Alcohol type: hard liquor Desire information about alcohol rehabilitation?: No Counseling given: No Desire information about substance/drug rehabilitation?: No Counseling given: No Course Vital Signs: Vital signs: Vital Signs Temperature 98.8 F 01/12/22 09:58 Pulse Rate 89 01/12/22 10:40 Respiratory Rate 20 H 01/12/22 10:40 Blood Pressure 145/113 01/12/22 10:40 Pulse Oximetry 98 01/12/22 10:40 Oxygen Delivery Me thod 01/12/22 09:58 MDM - Alcohol Medical Decision Making Patient is a 36-year-old female who comes to the ED with alcohol withdrawal symptoms. She denies any history of past DTs or any other complications during alcohol detox. Last drink was at 9:15 PM last night. She is having symptoms of anxiety, bilateral hand tremors, nausea and vomiting. Denies any SI. Patient's pulse was tacky at 125 but the rest of her vitals are stable during triage. Patient appears nontoxic and in no acute distress. She is alert and oriented no smell of alcohol noted. She does appear anxious with visible bilateral hand tremors. Rest of the exam is benign. Labs are unremarkable and blood alcohol level was below 10. She was given a liter of IV fluids, thiamine, Zofran and Ativan and her withdrawal symptoms improved. I discussed with patient about alcohol detox and she stated that she does want to stop drinking. Patient was diagnosed with alcohol withdrawal symptoms and she was stable for discharge home. She was sent home with a prescription for Librium and I stressed with the patient that she cannot drink alcohol while taking Librium. Told her to follow-up with her PCP within the next week for reevaluation. She understood and agreed with plan. Chart reviewed and patient discussed with midlevel. Agree with assessment and plan. Lab Data : 01/12/22 10:15 01/12/22 10:44 Laboratory Results WBC 7.5 10^3/uL (4.0-10.0) 01/12/22 10:15 RBC 4.84 10^6/uL (4.1-5.3) 01/12/22 10:15 Hgb 14.5 g/dL (11.5-15.3) 01/12/22 10:15 Hct 43.9 % (37.0-47.0) 01/12/22 10:15 MCV 90.7 fl (81-99) 01/12/22 10:15 MCH 30.0 pg (28.0-34.0) 01/12/22 10:15 MCHC 33.0 g/dL (30.0-36.0) 01/12/22 10:15 RDW 12.5 % (12.1-15.1) 01/12/22 10:15 Plt Count 277 10^3/cmm (130-400) 01/12/22 10:15 MPV 10.5 fL (7.4-10.4) H 01/12/22 10:15 Neut % (Auto) 69.8 % 01/12/22 10:15 Lymph % (Auto) 19.3 % 01/12/22 10:15 [place] % (Auto) 7.0 % 01/12/22 10:15 Eos % (Auto) 2.8 % 01/12/22 10:15 Baso % (Auto) 0.7 % 01/12/22 10:15 Neut # (Auto) 5.25 10^3/uL (1.8-7.7) 01/12/22 10:15 Lymph # (Auto) 1.5 10^3/uL (0.8-4.8) 01/12/22 10:15 [place] # (Auto) 0.5 10^3/uL (0.2-0.9) 01/12/22 10:15 Eos # (Auto) 0.2 10^3/uL (0.0-0.8) 01/12/22 10:15 Baso # (Auto) 0.1 10^3/uL (0.0-0.1) 01/12/22 10:15 Nucleated RBC % (auto) 0 % 01/12/22 10:15 Nucleated RBCs # 0.0 /100WBC 01/12/22 10:15 Sodium 134 mmol/L (136-145) L 01/12/22 10:44 Potassium 4.0 mmol/L (3.5-5.1) 01/12/22 10:44 Chloride 100 mmol/L (98-107) 01/12/22 10:44 Carbon Dioxide 22 mmol/L (22-29) 01/12/22 10:44 Anion Gap 16.0 (5-19) 01/12/22 10:44 BUN 7 mg/dL (6-20) 01/12/22 10:44 Creatinine 0.6 mg/dL (0.5-0.9) 01/12/22 10:44 GFR Calculation 114.4 mL/min (90-130) 01/12/22 10:44 Glucose 98 mg/dL (65-115) 01/12/22 10:44 Calculated Osmolality 276 mOsm/kg (285-295) L 01/12/22 10:44 Calcium 8.9 mg/dL (8.5-10.5) 01/12/22 10:44 Total Bilirubin 0.6 mg/dL (0.15-1.2) 01/12/22 10:44 AST 101 U/L (0-32) H 01/12/22 10:44 ALT 69 U/L (0-33) H 01/12/22 10:44 Alkaline Phosphatase 84 U/L (35-105) 01/12/22 10:44 Total Protein 7.0 g/dL (6.6-8.7) 01/12/22 10:44 Albumin 4.0 g/dL (3.5-5.2) 01/12/22 10:44 Globulin 3.0 g/dL (1.3-4.6) 01/12/22 10:44 Lipase 23 U/L (13-60) 01/12/22 10:44 HCG, Qual Negative (Negative) 01/12/22 10:15 Urine Color Marga (Yellow) 01/12/22 10:20 Urine Appearance Clear (CLEAR) 01/12/22 10:20 Urine pH 6.5 (5-7) 01/12/22 10:20 Ur Specific [place] 1.015 (1.005-1.030) 01/12/22 10:20 Urine Protein Neg (Negative) 01/12/22 10:20 Urine Glucose (UA) Norm (Normal) 01/12/22 10:20 Urine Ketones Negative (Negative) 01/12/22 10:20 Urine Blood Trace (Negative) H 01/12/22 10:20 Urine Nitrate Negative (Negative) 01/12/22 10:20 Urine Bilirubin Neg (Negative) 01/12/22 10:20 Urine Urobilinogen Neg mg/dL (Negative) 01/12/22 10:20 Ur Leukocyte Esterase Negative (Negative) 01/12/22 10:20 Urine RBC Rare /hpf (0-2) 01/12/22 10:20 Urine WBC None /hpf (0-5) 01/12/22 10:20 Ur Squamous Epith Cells 5-10 /hpf (0-5) H 01/12/22 10:20 Amorphous Sediment Not Reportable 01/12/22 10:20 Urine Bacteria R /hpf (NONE) 01/12/22 10:20 Urine Trichomonas 1+ /hpf H 01/12/22 10:20 Ethyl Alcohol < 10 mg/dL (0-10) 01/12/22 10:44 Discharge Plan Discharge Patient Disposition: Home Clinical Impression: Alcohol withdrawal syndrome Qualifiers: Complication of substance-induced condition: uncomplicated Qualified Code(s): F10.930 - Alcohol use, unspecified with withdrawal, uncomplicated Condition: Stable Prescriptions: New ondansetron 4 mg tablet,disintegrating 4 mg PO Q8H PRN (Reason: nausea and vomiting) Qty: 20 0RF No Action naltrexone 50 mg tablet 25 mg PO DAILY Qty: 15 2RF bupropion HCl [Wellbutrin XL] 150 mg tablet extended release 24 hr 150 mg PO DAILY 30 Days Qty: 30 2RF fluoxetine 20 mg capsule 60 mg PO DAILY Qty: 90 2RF chlordiazepoxide HCl 25 mg capsule 25 mg PO QID PRN (Reason: anxiety) Qty: 20 0RF nitrofurantoin monohyd/m-cryst [Macrobid] 100 mg capsule 100 mg PO Q12H 7 Days Qty: 14 0RF Rx Instructions: must administer with a meal/food metronidazole 500 mg tablet 500 mg PO BID Qty: 14 0RF Discharge Orders: Discharge ED (Routine); Ordered 01/12/22 Ordered By: David Akhtar Discharge Diet: Regular Discharge Activity: Increase activity as tolerated Patient Instructions: Alcohol Withdrawal Activity Restrictions/Additional Instructions: Follow-up with medical provider as directed in the next 7 days for reevaluation. Do not drink any alcohol while taking Librium. Take medications as prescribed for alcohol withdrawal symptoms. Return to the ER or your medical provider if condition worsens. Please read and understand discharge instructions. Thank you for choosing [facility] for your healthcare needs today. Please realize this is an emergency room and that we are providing you with a medical screening exam and this may not be complete and all inclusive of all the testing and or work up that you may need to determine your ailment or severity of your illness. It is very important that you follow up as instructed or that you return to the Emergency Department should you have concerns or if your condition changes or worsens in any way. Stand Alone Forms: Work/School Release Coding Level of Care Code ED Silviculturist for Krzysztof Fwsheba Exam Comprehensive
[2022-01-12 10:40] VITALS: BP 145/113; PULSE 89; RESP 20; O2SAT 98
[2022-01-12 10:41] LABS: HCG, Serum Qual Negative (Negative)
[2022-01-12 10:43] LABS: Add Urine Microscopic? YES; Bilirubin Urine Neg (Negative); Blood Urine Trace (Negative); Glucose Urine UA Norm (Normal); Ketones Urine Negative (Negative); Leukocyte Esterase Urine Negative (Negative); Nitrate Urine Negative (Negative); Protein Urine Neg (Negative); Specific Gravity, Urine 1.015 (1.005-1.030); Urine Appearance Clear (CLEAR); Urine Color Amber (Yellow); Urobilinogen Urine Neg (Negative); pH Urine 6.5 (5-7)
[2022-01-12] MEDS: LORazepam 2 mg/mL INJ 1 mL IVP (10:46)
[2022-01-12] MEDS: ondansetron 2 mg/ML SDV 2 mL 4 MG IVP (10:46)
[2022-01-12] MEDS: sodium chloride 0.9% 1,000 ML 999 ML IV (10:50)
[2022-01-12 10:53] LABS: Bacteria Urine R /hpf; RBC Urine RARE /hpf (0-2)
[2022-01-12 10:54] LABS: Add Urine Culture? No; Trichomonas Urine 1+ /hpf
[2022-01-12 11:09] LABS: Alanine Aminotransferase 69 U/L (0-33); Alkaline Phosphatase 84 U/L (35-105); Aspartate Amino Transferase 101 U/L (0-32); Blood Urea Nitrogen 7 mg/dL (6-20); Calcium 8.9 mg/dL (8.5-10.5); Carbon Dioxide 22 mmol/L (22-29); Chloride 100 mmol/L (98-107); Glomerular Filtration Rate 114.4 mL/min (90-130); Glucose 98 mg/dL (65-115); Lipase 23 U/L (13-60); Osmolality Calculated 276 mOsm/kg (285-295); Sodium 134 mmol/L (136-145); Total Bilirubin 0.6 mg/dL (0.15-1.2)
[2022-01-12 11:10] LABS: Alcohol Level < 10 mg/dL (0-10)
[2022-01-12] MEDS: LORazepam 1 mg Tablet PO (12:50)
== END 2022-01-12 13:07 | disposition home or self-care (01) ==
PROVIDERS: Emergency Provider Physician Assistant
DX: F10.930 Alcohol use, unspecified with withdrawal, uncomplicated (principal); F17.210 Nicotine dependence, cigarettes, uncomplicated
CPT/HCPCS: 36415; 80053; 80307; 81001; 83690; 84703; 85025; 96361; 96374; 96375; 99284; J2060; J2405; J3411; J7030

== ENCOUNTER 2022-02-25 20:12 | Emergency (ER) | payer MEDICAID, SELFPAY ==
[2022-02-25 20:40] VITALS: BP 154/104; PULSE 109; RESP 16; TEMP 35.9; O2SAT 96; BMI 41.1
[2022-02-25 20:59] LABS: Basophils # 0.1 10^3/uL (0.0-0.1); Basophils % 0.5 %; Eosinophils # 0.4 10^3/uL (0.0-0.8); Hematocrit 39.8 % (37.0-47.0); Hemoglobin 13.1 g/dL (11.5-15.3); Lymphocytes # 2.1 10^3/uL (0.8-4.8); Mean Corpuscular HGB Conc 32.9 g/dL (30.0-36.0); Mean Corpuscular Hemoglobin 28.7 pg (28.0-34.0); Mean Corpuscular Volume 87.3 fl (81-99); Mean Platelet Volume 10.2 fL (7.4-10.4); Monocytes # 0.9 10^3/uL (0.2-0.9); Neutrophils # 9.54 10^3/uL (1.8-7.7); Neutrophils % 73.1 %; Nucleated Red Blood Cells % 0 %; Platelet Count 343 10^3/cmm (130-400); Red Blood Count 4.56 10^6/uL (4.1-5.3); Red Cell Distribution Width 12.5 % (12.1-15.1); White Blood Count 13.1 10^3/uL (4.0-10.0)
[2022-02-25 21:17] LABS: HCG, Serum Qual Negative (Negative)
[2022-02-25 21:20] LABS: Alanine Aminotransferase 36 U/L (0-33); Albumin Level 4.3 g/dL (3.5-5.2); Alkaline Phosphatase 66 U/L (35-105); Aspartate Amino Transferase 27 U/L (0-32); Blood Urea Nitrogen 14 mg/dL (6-20); Calcium 9.1 mg/dL (8.5-10.5); Carbon Dioxide 20 mmol/L (22-29); Chloride 105 mmol/L (98-107); Creatinine Clr Calc Pharmacy 119.4526; Globulin 2.9 g/dL (1.3-4.6); Glomerular Filtration Rate 82.1 mL/min (90-130); Glucose 111 mg/dL (65-115); Lipase 32 U/L (13-60); Osmolality Calculated 283 mOsm/kg (285-295); Sodium 136 mmol/L (136-145); Total Bilirubin 0.2 mg/dL (0.15-1.2); Total Protein 7.2 g/dL (6.6-8.7)
--- NOTE | 2022-02-25 22:05 | CTR_ITS ---
PROCEDURE INFORMATION: Exam: CT Abdomen And Pelvis Without Contrast Exam date and time: 02/25/2022 10:22 PM Age: 36 years old Clinical indication: Nausea and vomiting; Abdominal pain; Prior surgery; Surgery type: Csection; Patient HX: C/O left flank/llq pain with n/v. ; Additional info: Flank pain/llq pain, lmp 2 1/2 weeks ago TECHNIQUE: Imaging protocol: Computed tomography of the abdomen and pelvis without contrast. Radiation optimization: All CT scans at this facility use at least one of these dose optimization techniques: automated exposure control; mA and/or kV adjustment per patient size (includes targeted exams where dose is matched to clinical indication); or iterative reconstruction. COMPARISON: CR XR chest 1V portable [id number] 01/28/2021 6:10 PM RADIATION DOSE METRICS: Total DLP (mGy-cm): 966.79 FINDINGS: Liver: The liver is unremarkable in appearance. Gallbladder and bile ducts: No calcified gallstones in the gallbladder. No gallbladder wall thickening. No pericholecystic fluid. No biliary dilatation. Pancreas: The pancreas is normal in appearance. No pancreatic duct dilatation. Spleen: The spleen is normal in size and appearance. Adrenal glands: Unremarkable. No mass. Kidneys and ureters: Bilateral nephrolithiasis. Nonobstructing renal calculi measuring up to 4 mm in diameter are present. Mild left hydroureteronephrosis. There is a 4 mm distal left ureteral calculus. Findings are consistent with left obstructive uropathy. No right hydronephrosis. Right ureter is unremarkable. Stomach and bowel: No acute gastric abnormality demonstrated. The small bowel is unremarkable as demonstrated. No acute abnormality/inflammatory change of the colon. Appendix: The appendix is normal in appearance. No evidence of appendicitis. Intraperitoneal space: No pneumoperitoneum. No significant fluid collection. Vasculature: No abdominal aortic aneurysm. Lymph nodes: No pathologically enlarged lymph nodes. Urinary bladder: Urinary bladder is unremarkable. Reproductive: Uterus and adnexa are unremarkable. Bones/joints: Unremarkable. No acute osseous abnormality. Soft tissues: Unremarkable. CT/CT kidney stone [id number] IMPRESSION: 1. Bilateral nephrolithiasis. Nonobstructing renal calculi measuring up to 4 mm in diameter are present. 2. Mild left hydroureteronephrosis. There is a 4 mm distal left ureteral calculus. Findings are consistent with left obstructive uropathy.
--- NOTE | 2022-02-25 22:09 | ED_ITS ---
HPI - Abdominal Pain General: Chief Complaint: Abdominal Pain Stated Complaint: abdomen pain Time Seen by Provider: 02/25/22 21:55 History of Present Illness: Patient comes in with abdominal pain. States that it started earlier this afternoon around 4 PM. Describes it as left lower quadrant, sharp, constant, at times severe. Denies fever, vomiting. States her last menstrual cycle was 2-1/2 weeks ago. States the pain does radiate somewhat into her back and bladder. Associated Symptoms: Reports diarrhea; Denies dysuria, fever(s), nausea and vomiting Related Data: Date of Last Menstrual Period: 03/01/16 Review of Systems Const: Denies: fever(s) or body aches Eyes: Denies: change in vision or blurry vision ENMT: Denies: throat pain or odynophagia Card: Denies: chest pain or palpitations Resp: Denies: dyspnea or productive cough GI: Reports: abdominal pain and diarrhea; Denies: nausea or vomiting : Denies: flank pain or dysuria Musc: Denies: neck pain or back pain Skin/Breast: Denies: rash or pruritus Neuro: Denies: headache(s) or numbness in extremities Psych: Denies: anxiety or change in appetite Endo: Denies: polyuria or excessive sweating PFSH ED PFSH: Medical History Anxiety Psychiatric care Surgical History Hx of section Family History Father Hypertension Suicide Psychiatric illness Hyperlipidemia Mother Hypertension Psychiatric illness Hyperlipidemia Grandmother Uterine cancer maternal Breast cancer paternal Psychiatric illness maternal Social History Smoking and tobacco status: current every day smoker cigarettes Packs smoked per day: 0.5 Years cigarettes smoked: 17 Quit status (tobacco): has tried quititng Number of times tried to quit tobacco: 3 Second hand smoke exposure: No Smoking risk assessment/counseling performed?: No Alcohol intake: current Alcohol intake frequency: 3 or more drinks per day Alcohol type: hard liquor Desire information about alcohol rehabilitation?: No Counseling given: No Desire information about substance/drug rehabilitation?: No Counseling given: No Female Reproductive History: Date of last menstrual period: 03/01/16 Physical Exam Const: COMMON NORMALS: patient oriented x3, healthy appearing and alert OTHER: Mild distress from pain HENMT: COMMON NORMALS: normocephalic and atraumatic HEAD & SCALP: normocephalic and atraumatic Eye: COMMON NORMALS: Equal, round and reactive pupils present and EOMs intact bilaterally PUPIL: Yes Equal, round and reactive pupils present Neck/C-Spine: COMMON NORMALS: full ROM and supple Resp: COMMON NORMALS: normal respiratory effort, No retractions and No use of accessory muscles Cardio: COMMON NORMALS: regular rate and regular rhythm RATE: regular rate RHYTHM: regular rhythm GI: COMMON NORMALS: Normal to inspection, nondistended, normoactive bowel sounds present, Soft to palpation and non-tender PALPATION: Yes Soft to palpation Back/Pelvis: COMMON NORMALS: thoracic and lumbar spine normal to inspection and no thoracic nor lumbar tenderness Extremity: COMMON NORMALS: normal to inspection and full ROM Neuro: COMMON NORMALS: patient oriented x3 SENSORIUM/ORIENTATION: Yes alert Psych: COMMON NORMALS: mental status grossly normal and cooperative Skin: COMMON NORMALS: no rashes or lesions noted and no wounds GENERAL SKIN EXAM: no rashes or lesions noted Course Vital Signs: Vital signs: Vital Signs Temperature 96.6 F L 02/25/22 20:40 Pulse Rate 91 02/26/22 00:31 Respiratory Rate 17 02/26/22 00:31 Blood Pressure 146/95 02/26/22 00:31 Pulse Oximetry 96 02/25/22 20:40 Oxygen Delivery Me thod 02/26/22 00:00 MDM - Abdominal Pain Medical Decision Making Patient comes in with abdominal pain. States that it started earlier this afternoon around 4 PM. Describes it as left lower quadrant, sharp, constant, at times severe. Denies fever, vomiting. States her last menstrual cycle was 2- 1/2 weeks ago. States the pain does radiate somewhat into her back and bladder. On physical exam she looks mildly uncomfortable secondary to the pain. Abdomen is soft, nontender. Will check labs, CT renal, give IV fluids, treat pain with IV Toradol, treat nausea with IV Zofran, and reassess. Awaiting CT results. Will sign out to the oncoming physician. Lab Data 02/25/22 20:55 02/25/22 20:55 Labs/Radiology: Radiology Impressions Abdomen/Pelvis CT 02/25/22 22:05 IMPRESSION: 1. Bilateral nephrolithiasis. Nonobstructing renal calculi measuring up to 4 mm in diameter are present. 2. Mild left hydroureteronephrosis. There is a 4 mm distal left ureteral calculus. Findings are consistent with left obstructive uropathy. Laboratory Results WBC 13.1 10^3/uL (4.0-10.0) H 02/25/22 20:55 RBC 4.56 10^6/uL (4.1-5.3) 02/25/22 20:55 Hgb 13.1 g/dL (11.5-15.3) 02/25/22 20:55 Hct 39.8 % (37.0-47.0) 02/25/22 20:55 MCV 87.3 fl (81-99) 02/25/22 20:55 MCH 28.7 pg (28.0-34.0) 02/25/22 20:55 MCHC 32.9 g/dL (30.0-36.0) 02/25/22 20:55 RDW 12.5 % (12.1-15.1) 02/25/22 20:55 Plt Count 343 10^3/cmm (130-400) 02/25/22 20:55 MPV 10.2 fL (7.4-10.4) 02/25/22 20:55 Neut % (Auto) 73.1 % 02/25/22 20:55 Lymph % (Auto) 16.0 % 02/25/22 20:55 [place] % (Auto) 7.0 % 02/25/22 20:55 Eos % (Auto) 3.0 % 02/25/22 20:55 Baso % (Auto) 0.5 % 02/25/22 20:55 Neut # (Auto) 9.54 10^3/uL (1.8-7.7) H 02/25/22 20:55 Lymph # (Auto) 2.1 10^3/uL (0.8-4.8) 02/25/22 20:55 [place] # (Auto) 0.9 10^3/uL (0.2-0.9) 02/25/22 20:55 Eos # (Auto) 0.4 10^3/uL (0.0-0.8) 02/25/22 20:55 Baso # (Auto) 0.1 10^3/uL (0.0-0.1) 02/25/22 20:55 Nucleated RBC % (auto) 0 % 02/25/22 20:55 Nucleated RBCs # 0.0 /100WBC 02/25/22 20:55 Sodium 136 mmol/L (136-145) 02/25/22 20:55 Potassium 4.0 mmol/L (3.5-5.1) 02/25/22 20:55 Chloride 105 mmol/L (98-107) 02/25/22 20:55 Carbon Dioxide 20 mmol/L (22-29) L 02/25/22 20:55 Anion Gap 15.0 (5-19) 02/25/22 20:55 BUN 14 mg/dL (6-20) 02/25/22 20:55 Creatinine 0.8 mg/dL (0.5-0.9) 02/25/22 20:55 GFR Calculation 82.1 mL/min (90-130) L 02/25/22 20:55 Glucose 111 mg/dL (65-115) 02/25/22 20:55 Calculated Osmolality 283 mOsm/kg (285-295) L 02/25/22 20:55 Calcium 9.1 mg/dL (8.5-10.5) 02/25/22 20:55 Total Bilirubin 0.2 mg/dL (0.15-1.2) 02/25/22 20:55 AST 27 U/L (0-32) 02/25/22 20:55 ALT 36 U/L (0-33) H 02/25/22 20:55 Alkaline Phosphatase 66 U/L (35-105) 02/25/22 20:55 Total Protein 7.2 g/dL (6.6-8.7) 02/25/22 20:55 Albumin 4.3 g/dL (3.5-5.2) 02/25/22 20:55 Globulin 2.9 g/dL (1.3-4.6) 02/25/22 20:55 Lipase 32 U/L (13-60) 02/25/22 20:55 HCG, Qual Negative (Negative) 02/25/22 20:55 Urine Color [place] (Yellow) 02/25/22 21:57 Urine Appearance Clear (CLEAR) 02/25/22 21:57 Urine pH 5 (5-7) 02/25/22 21:57 Ur Specific [place] 1.025 (1.005-1.030) 02/25/22 21:57 Urine Protein Not tested (Negative) 02/25/22 21:57 Urine Glucose (UA) Not tested (Normal) 02/25/22 21:57 Urine Ketones Not tested (Negative) H 02/25/22 21:57 Urine Blood Not tested (Negative) A 02/25/22 21:57 Urine Nitrate Not tested (Negative) A 02/25/22 21:57 Urine Bilirubin Not tested (Negative) 02/25/22 21:57 Urine Urobilinogen Not tested mg/dL (Negative) A 02/25/22 21:57 Ur Leukocyte Esterase Not tested (Negative) A 02/25/22 21:57 Urine RBC 0-4 /hpf (0-2) H 02/25/22 21:57 Urine WBC 0-4 /hpf (0-5) H 02/25/22 21:57 Ur Squamous Epith Cells 0-4 /hpf (0-5) H 02/25/22 21:57 Amorphous Sediment Not Reportable 02/25/22 21:57 Urine Bacteria Trace /hpf (NONE) 02/25/22 21:57 Urine Mucus Trace /hpf 02/25/22 21:57 Discharge Plan Discharge Patient Disposition: Home Clinical Impression: Kidney stone Condition: Stable Prescriptions: New Flomax 0.4 mg capsule 0.4 mg PO DAILY 4 Days Qty: 4 0RF hydrocodone-acetaminophen 5-325 mg tablet 1 tab PO Q6H PRN (Reason: pain) Qty: 10 0RF No Action naltrexone 50 mg tablet 25 mg PO DAILY Qty: 15 2RF bupropion HCl [Wellbutrin XL] 150 mg tablet extended release 24 hr 150 mg PO DAILY 30 Days Qty: 30 2RF fluoxetine 20 mg capsule 60 mg PO DAILY Qty: 90 2RF chlordiazepoxide HCl 25 mg capsule 25 mg PO QID PRN (Reason: anxiety) Qty: 20 0RF nitrofurantoin monohyd/m-cryst [Macrobid] 100 mg capsule 100 mg PO Q12H 7 Days Qty: 14 0RF Rx Instructions: must administer with a meal/food metronidazole 500 mg tablet 500 mg PO BID Qty: 14 0RF ondansetron 4 mg tablet,disintegrating 4 mg PO Q8H PRN (Reason: nausea and vomiting) Qty: 20 0RF Discharge Orders: Discharge ED (Routine); Ordered 02/25/22 Ordered By: Jose Shepherd Referrals: Gabriele Varma MD [Physician] - 1-3 days Discharge Diet: Advance as tolerated Discharge Activity: Resume usual activity Patient Instructions: Kidney Stones, Opioid Safety Coding Level of Care Code ED Record Center Coordinator for Chg Fwd Exam Comprehensive
[2022-02-25 22:14] LABS: Bilirubin Urine Not Tested (Negative); Blood Urine Not Tested (Negative); Glucose Urine UA Not Tested (Normal); Ketones Urine Not Tested (Negative); Nitrate Urine Not Tested (Negative); Protein Urine Not Tested (Negative); Specific Gravity, Urine 1.025 (1.005-1.030); Urine Appearance Clear (CLEAR); Urine Color Orange (Yellow); pH Urine 5 (5-7)
[2022-02-25 22:15] LABS: Add Urine Microscopic? YES; Leukocyte Esterase Urine Not Tested (Negative); Urobilinogen Urine Not Tested mg/dL (Negative)
[2022-02-25] MEDS: ketorolac 30 mg/mL INJ 15 MG IVP (22:17)
[2022-02-25] MEDS: ondansetron 2 mg/ML SDV 2 mL 4 MG IVP (22:17)
[2022-02-25] MEDS: sodium chloride 0.9% 1,000 ML 999 ML IV (22:18)
[2022-02-25 22:21] LABS: Bacteria Urine TRACE /hpf; RBC Urine 0-4 /hpf (0-2); Squamous Epithelial Cell Urine 0-4 /hpf (0-5); WBC Urine 0-4 /hpf (0-5)
[2022-02-25 22:22] LABS: Add Urine Culture? No; Mucus Urine TRACE /hpf
[2022-02-25 23:03] VITALS: RESP 17
[2022-02-25] MEDS: HYDROmorphone 1 mg/mL INJ 1 mL IVP (23:03)
[2022-02-26] VITALS: BP 146/95; PULSE 91; RESP 17
[2022-02-26] MEDS: HYDROcodone-acetaminophen 7.5-325 mg Tablet 1 TAB PO (00:02)
[2022-02-26 00:31] VITALS: BP 146/95; PULSE 91; RESP 17
--- NOTE | 2022-02-26 09:25 | DCPLANNER ---
Addendum entered by Saranya Unger 02/26/22 10:50: or nurse manager received the following message from the urology clinic regarding follow up appointment: Appt. made for 03/12/22 but pt. declined appt. she does not have her insurance worked out. Original Note: or nurse manager had message to schedule a follow up appointment for patient with urology. or nurse manager sent patients information to the front office staff at urology. Patients information will be printed and reviewed. Clinic will call patient with appointment information.
== END 2022-02-26 00:15 | disposition home or self-care (01) ==
PROVIDERS: Emergency Medicine; Emergency Provider Emergency Medicine
DX: N13.2 Hydronephrosis with renal and ureteral calculous obstruction (principal); F17.210 Nicotine dependence, cigarettes, uncomplicated
CPT/HCPCS: 36415; 74176; 80053; 81001; 83690; 84703; 85025; 96361; 96374; 96375; 99285; J1170; J1885; J2405; J7030

== ENCOUNTER 2022-04-07 09:57 | Emergency (ER) | payer MEDICAID, SELFPAY ==
[2022-04-07 09:58] VITALS: BP 152/101; PULSE 117; RESP 19; TEMP 36.8; O2SAT 97; BMI 27.4
[2022-04-07 10:00] VITALS: BP 180/119; PULSE 110; RESP 16; O2SAT 93
--- NOTE | 2022-04-07 10:12 | W.ED.ALCOHOL ---
HPI - Alcohol General: Chief Complaint: Alcohol Stated Complaint: N/V Time Seen by Provider: 04/07/22 09:59 Source: patient and EMS Mode of arrival: EMS Limitations: altered mental status (intoxicated) History of Present Illness: Patient is a 36-year-old female who presents to ED today via EMS for alcohol intoxication. Patient states her ex-fianc?'s mother called an ambulance after finding her passed out drunk by a toilet. Patient denies any injury or trauma. She has a longstanding history of alcohol abuse. Patient states she has been drinking heavily over the past several days due to her recent break-up. Patient denies drug use. She denies alcohol withdrawal symptoms. Patient states she is interested in obtaining information for [facility]. Patient denies suicidal or homicidal ideations. MD complaint: alcohol intoxication Last drink: Hours (ago) Chronic alcohol use: Yes Previous visits for alcohol intoxication: Yes Recent trauma: No Associated symptoms: Reports nausea; Deny abdominal pain or vomiting Treatments prior to arrival: anti-emetics Review of Systems Const: Denies: fever(s), chills, body aches, fatigue or malaise Card: Denies: chest pain Resp: Denies: dyspnea GI: Reports: nausea; Denies: abdominal pain, vomiting or diarrhea Musc: Denies: neck pain, back pain, extremity pain or joint pain Skin/Breast: Denies: rash Neuro: Denies: headache(s), numbness in extremities, weakness in extremities or sensory changes [facility] ED PFSH: Medical History Anxiety Psychiatric care Surgical History Hx of section Family History Father Hypertension Suicide Psychiatric illness Hyperlipidemia Mother Hypertension Psychiatric illness Hyperlipidemia Grandmother Uterine cancer maternal Breast cancer paternal Psychiatric illness maternal Social History Smoking and tobacco status: current every day smoker cigarettes Packs smoked per day: 0.5 Years cigarettes smoked: 17 Quit status (tobacco): has tried quititng Number of times tried to quit tobacco: 3 Second hand smoke exposure: No Smoking risk assessment/counseling performed?: No Alcohol intake: current Alcohol intake frequency: 3 or more drinks per day Alcohol type: hard liquor Desire information about alcohol rehabilitation?: No Counseling given: No Desire information about substance/drug rehabilitation?: No Counseling given: No Female Reproductive History: Date of last menstrual period: 03/01/16 Physical Exam Const: COMMON NORMALS: no acute distress and alert GENERAL APPEARANCE: cooperative and odor of alcohol detected NUTRITIONAL APPEARANCE: obese ORIENTATION/CONSCIOUSNESS: Yes awake, Yes oriented to person and Yes oriented to place HENMT: COMMON NORMALS: normocephalic and atraumatic HEAD & SCALP: normal to inspection, normocephalic and atraumatic Resp: COMMON NORMALS: normal respiratory effort and clear to auscultation bilaterally AUSCULTATION: clear to auscultation bilaterally Cardio: COMMON NORMALS: regular rhythm RATE: tachycardic RHYTHM: regular rhythm GI: COMMON NORMALS: Normal to inspection, nondistended, normoactive bowel sounds present, Soft to palpation and non-tender PALPATION: Yes Soft to palpation Extremity: COMMON NORMALS: normal to inspection GENERAL: Yes normal exam except as noted Neuro: STIVEN COMA SCALE: document GCS findings [place] coma scale eye opening: Spontaneous [place] coma scale verbal response: Orientated [place] coma scale motor response: Obey commands [place] coma scale total score: 15 COMMON NORMALS: moves all extremities, no focal motor deficits and no sensory deficits noted SENSORIUM/ORIENTATION: Yes alert, Yes oriented to person and Yes oriented to place GAIT: Yes Unable to assess gait Skin: COMMON NORMALS: no rashes or lesions noted GENERAL SKIN EXAM: no rashes or lesions noted Course Vital Signs: Vital signs: Vital Signs Temperature 98.3 F 04/07/22 09:58 Pulse Rate 109 H 04/07/22 11:30 Respiratory Rate 16 04/07/22 11:30 Blood Pressure 155/97 04/07/22 11:30 Pulse Oximetry 94 04/07/22 11:30 Oxygen Delivery Me thod 04/07/22 09:58 MDM - Alcohol Medical Decision Making Patient is able to converse with me appropriately. Labs showing some minor elevations to her LFTs most likely consistent with fatty liver and her chronic alcohol abuse. Alcohol is 368. She surprisingly at this level is alert and able to follow commands appropriately. I spoke to case management in regards to [facility]. They state patient will need to go to their facility (sober) and fill out paperwork and place their name on their current waiting list. Patient is cleared for discharge from an ED standpoint as soon as she has a safe ride home. Lab Data 04/07/22 10:08 04/07/22 10:08 Laboratory Results WBC 7.7 10^3/uL (4.0-10.0) 04/07/22 10:08 RBC 5.03 10^6/uL (4.1-5.3) 04/07/22 10:08 Hgb 14.2 g/dL (11.5-15.3) 04/07/22 10:08 Hct 43.8 % (37.0-47.0) 04/07/22 10:08 MCV 87.1 fl (81-99) 04/07/22 10:08 MCH 28.2 pg (28.0-34.0) 04/07/22 10:08 MCHC 32.4 g/dL (30.0-36.0) 04/07/22 10:08 RDW 13.6 % (12.1-15.1) 04/07/22 10:08 Plt Count 493 10^3/cmm (130-400) H 04/07/22 10:08 MPV 9.2 fL (7.4-10.4) 04/07/22 10:08 Neut % (Auto) 57.5 % 04/07/22 10:08 Lymph % (Auto) 33.3 % 04/07/22 10:08 [place] % (Auto) 6.4 % 04/07/22 10:08 Eos % (Auto) 1.0 % 04/07/22 10:08 Baso % (Auto) 1.3 % 04/07/22 10:08 Neut # (Auto) 4.42 10^3/uL (1.8-7.7) 04/07/22 10:08 Lymph # (Auto) 2.6 10^3/uL (0.8-4.8) 04/07/22 10:08 [place] # (Auto) 0.5 10^3/uL (0.2-0.9) 04/07/22 10:08 Eos # (Auto) 0.1 10^3/uL (0.0-0.8) 04/07/22 10:08 Baso # (Auto) 0.1 10^3/uL (0.0-0.1) 04/07/22 10:08 Nucleated RBC % (auto) 0 % 04/07/22 10:08 Nucleated RBCs # 0.0 /100WBC 04/07/22 10:08 Sodium 142 mmol/L (136-145) 04/07/22 10:08 Potassium 3.7 mmol/L (3.5-5.1) 04/07/22 10:08 Chloride 102 mmol/L (98-107) 04/07/22 10:08 Carbon Dioxide 24 mmol/L (22-29) 04/07/22 10:08 Anion Gap 19.7 (5-19) H 04/07/22 10:08 BUN 12 mg/dL (6-20) 04/07/22 10:08 Creatinine 0.7 mg/dL (0.5-0.9) 04/07/22 10:08 GFR Calculation 95.8 mL/min (90-130) 04/07/22 10:08 Glucose 113 mg/dL (65-115) 04/07/22 10:08 Calculated Osmolality 295 mOsm/kg (285-295) 04/07/22 10:08 Calcium 8.2 mg/dL (8.5-10.5) L 04/07/22 10:08 Total Bilirubin 0.3 mg/dL (0.15-1.2) 04/07/22 10:08 AST 41 U/L (0-32) H 04/07/22 10:08 ALT 35 U/L (0-33) H 04/07/22 10:08 Alkaline Phosphatase 83 U/L (35-105) 04/07/22 10:08 Creatine Kinase 95 U/L (26-192) 04/07/22 10:08 Total Protein 7.4 g/dL (6.6-8.7) 04/07/22 10:08 Albumin 4.5 g/dL (3.5-5.2) 04/07/22 10:08 Globulin 2.9 g/dL (1.3-4.6) 04/07/22 10:08 Lipase 22 U/L (13-60) 04/07/22 10:08 HCG, Qual Negative (Negative) 04/07/22 10:08 Salicylates < 0.3 mg/dL (3-10) L 04/07/22 10:08 Acetaminophen < 5.0 ug/mL (10-30) L 04/07/22 10:08 Ethyl Alcohol 368 mg/dL (0-10) H* 04/07/22 10:08 Discharge Plan Discharge Patient Disposition: Home Clinical Impression: Alcohol use disorder Alcoholic intoxication Qualifiers: Complication of substance-induced condition: uncomplicated Qualified Code(s): F10.920 - Alcohol use, unspecified with intoxication, uncomplicated Condition: Stable Prescriptions: No Action bupropion HCl [Wellbutrin XL] 150 mg tablet extended release 24 hr 150 mg PO DAILY 30 Days Qty: 30 2RF fluoxetine 20 mg capsule 60 mg PO DAILY Qty: 90 2RF ondansetron 4 mg tablet,disintegrating 4 mg PO Q8H PRN (Reason: nausea and vomiting) Qty: 20 0RF Probiotic Blend 2 billion cell-50 mg Capsule 1 cap PO DAILY Rx Instructions: give with meal/snack Discharge Orders: Discharge ED (Routine); Ordered 04/07/22 Ordered By: Donna Herndon Patient Instructions: Alcohol Intoxication (DC), Abuse of Alcohol (DC) Activity Restrictions/Additional Instructions: As we discussed if you are interested in receiving treatment for your alcohol abuse you need to go to [id number] fill out appropriate paperwork and place your name on a waiting list. Coding Level of Care Code ED Passenger Car Upholsterer Apprentice for Krzysztof Aburto
[2022-04-07] MEDS: sodium chloride 0.9% 1,000 ML 999 ML IV (10:25)
[2022-04-07 10:30] LABS: Basophils # 0.1 10^3/uL (0.0-0.1); Basophils % 1.3 %; Eosinophils # 0.1 10^3/uL (0.0-0.8); Hematocrit 43.8 % (37.0-47.0); Hemoglobin 14.2 g/dL (11.5-15.3); Lymphocytes # 2.6 10^3/uL (0.8-4.8); Lymphocytes % 33.3 %; Mean Corpuscular HGB Conc 32.4 g/dL (30.0-36.0); Mean Corpuscular Hemoglobin 28.2 pg (28.0-34.0); Mean Corpuscular Volume 87.1 fl (81-99); Mean Platelet Volume 9.2 fL (7.4-10.4); Monocytes # 0.5 10^3/uL (0.2-0.9); Monocytes % 6.4 %; Neutrophils # 4.42 10^3/uL (1.8-7.7); Neutrophils % 57.5 %; Nucleated Red Blood Cells % 0 %; Platelet Count 493 10^3/cmm (130-400); Red Blood Count 5.03 10^6/uL (4.1-5.3); Red Cell Distribution Width 13.6 % (12.1-15.1); White Blood Count 7.7 10^3/uL (4.0-10.0)
[2022-04-07 10:46] LABS: HCG, Serum Qual Negative (Negative)
[2022-04-07 10:53] LABS: Acetaminophen < 5.0 ug/mL (10-30); Alanine Aminotransferase 35 U/L (0-33); Albumin Level 4.5 g/dL (3.5-5.2); Alkaline Phosphatase 83 U/L (35-105); Anion Gap 19.7 (5-19); Aspartate Amino Transferase 41 U/L (0-32); Blood Urea Nitrogen 12 mg/dL (6-20); Calcium 8.2 mg/dL (8.5-10.5); Carbon Dioxide 24 mmol/L (22-29); Chloride 102 mmol/L (98-107); Creatine Phosphokinase 95 U/L (26-192); Globulin 2.9 g/dL (1.3-4.6); Glomerular Filtration Rate 95.8 mL/min (90-130); Glucose 113 mg/dL (65-115); Lipase 22 U/L (13-60); Osmolality Calculated 295 mOsm/kg (285-295); Potassium 3.7 mmol/L (3.5-5.1); Salicylate < 0.3 mg/dL (3-10); Sodium 142 mmol/L (136-145); Total Bilirubin 0.3 mg/dL (0.15-1.2); Total Protein 7.4 g/dL (6.6-8.7)
[2022-04-07 10:56] LABS: Alcohol Level 368 mg/dL (0-10)
[2022-04-07 11:00] VITALS: BP 132/93; RESP 16
[2022-04-07 11:30] VITALS: BP 155/97; PULSE 109; RESP 16; O2SAT 94
== END 2022-04-07 13:31 | disposition home or self-care (01) ==
PROVIDERS: Emergency Provider Physician Assistant
DX: F10.10 Alcohol abuse, uncomplicated (principal); Y90.8 Blood alcohol level of 240 mg/100 ml or more; F17.210 Nicotine dependence, cigarettes, uncomplicated
CPT/HCPCS: 80053; 80307; 82550; 83690; 84703; 85025; 96360; 99284; J7030

== ENCOUNTER 2022-04-08 11:03 | Emergency (ER) | payer MEDICAID, SELFPAY ==
[2022-04-08] VITALS (24 sets, daily range): BP systolic 145–169; BP diastolic 95–110; PULSE 88–110; RESP 12–26; O2SAT 90–100; BMI 40.1
--- NOTE | 2022-04-08 11:12 | ED.C_ITS ---
HPI - Psych General: Chief Complaint: Psychiatric Symptoms Stated Complaint: SI/ DEPRESSED/ ETOH INTOXICATION Time Seen by Provider: 04/08/22 11:12 History of Present Illness: Ms. Carey is a 36-year-old lady with history of alcohol abuse, anxiety presenting to the emergency department for depression with suicidal ideation in the context of recent break-up and alcohol abuse. She reports longstanding history of alcohol misuse however the past week as drink daily. She is drinking 15 shots approximately per day. Last drink prior to coming in. Endorses feeling increasingly depressed with inability to stop spiral. Intensity of symptoms is moderate to severe. No other specific changes in health, exacerbating, or alleviating factors identified. Onset (ago): week(s) Duration: getting worse History of same: Yes Context: recent alcohol abuse and significant life stressor Associated psychiatric symptoms: depression and suicidal ideation Review of Systems General: Reports: 10 or more systems reviewed and unremarkable except in HPI and below PFSH ED PFSH: Medical History Anxiety Psychiatric care Surgical History Hx of section Family History Father Hypertension Suicide Psychiatric illness Hyperlipidemia Mother Hypertension Psychiatric illness Hyperlipidemia Grandmother Uterine cancer maternal Breast cancer paternal Psychiatric illness maternal Social History Smoking and tobacco status: current every day smoker cigarettes Packs smoked per day: 0.5 Years cigarettes smoked: 17 Quit status (tobacco): has tried quititng Number of times tried to quit tobac co: 3 Second hand smoke exposure: No Smoking risk assessment/counseling performed?: No Alcohol intake: current Alcohol intake frequency: 3 or more drinks per day Alcohol type: hard liquor Desire information about alcohol rehabilitation?: No Counseling given: No Desire information about substance/drug rehabilitation?: No Counseling given: No Female Reproductive History: Date of last menstrual period: 03/01/16 Physical Exam Const: COMMON NORMALS: alert GENERAL APPEARANCE: cooperative and well developed HENMT: COMMON NORMALS: normocephalic and atraumatic HEAD & SCALP: normocephalic and atraumatic Eye: COMMON NORMALS: conjunctivae normal CONJUNCTIVA: Yes conjunctivae normal SCLERA: sclerae normal Neck/C-Spine: COMMON NORMALS: supple GENERAL: Yes trachea midline Resp: COMMON NORMALS: clear to auscultation bilaterally EFFORT & INSPECTION: Yes able to speak in complete sentences AUSCULTATION: clear to auscultation bilaterally Cardio: COMMON NORMALS: regular rhythm RATE: tachycardic RHYTHM: regular rhythm GI: COMMON NORMALS: Soft to palpation PALPATION: Yes Soft to palpation and No Tenderness to palpation present (GI) Extremity: GENERAL: Yes normal exam except as noted and No edema Neuro: COMMON NORMALS: moves all extremities SENSORIUM/ORIENTATION: Yes al ert and No Orientation impaired Psych: COMMON NORMALS: mental status grossly normal and Normal thought process present THOUGHT PROCESS: Normal thought process present Course Vital Signs: Vital signs: Vital Signs Pulse Rate 100 04/08/22 18:42 Respiratory Rate 13 04/08/22 18:42 Blood Pressure 145/95 04/08/22 18:42 Pulse Oximetry 95 04/08/22 18:42 Oxygen Delivery Me thod 04/08/22 11:22 MDM - Psych Medical Decision Making 36-year-old lady with history of anxiety and alcohol abuse presented to the emergency department with alcohol intoxication and suicidal ideation. She reports worsening symptoms in the context of recent relationship ending. Patient is nontoxic in appearance and calm and cooperative on exam. EKG notable for sinus rhythm, normal intervals, no concerning ST segment changes. Labs with unremarkable hematologic panel, metabolic panel with mild evidence of changes related to alcohol however no acute intervention required. TSH normal. Toxic ingestions are negative with exception of ethyl alcohol level which is 262 mg/dL. Urinalysis with no evidence of infection. UDS positive for benzodiazepines. Given worsening symptoms associated with substance abuse I believe that inpatient management is reasonable. Based on ED evaluation at this point there is no obvious condition that would preclude the patient from inpatient management psychiatric concerns/symptoms. We do not have inpatient adult psychiatric unit beds at our facility available at this time and therefore we will look for transfer. Subsequently patient decided she wanted to leave. She denies suicidal or homicidal ideation. She was provided by the psychiatry service and satisfactory for discharge. The results of ED evaluation were discussed with the patient including prescript ions and/or symptomatic cares (if applicable) including appropriate and responsible use, followup plan, and return precautions. The patient verbalized understanding and felt safe for discharge. Medical Records I reviewed the patient's medical records. Lab Data I reviewed the patient's lab results. 04/08/22 11:47 04/08/22 11:47 Laboratory Results WBC 8.8 10^3/uL (4.0-10.0) 04/08/22 11:47 RBC 4.65 10^6/uL (4.1-5.3) 04/08/22 11:47 Hgb 13.6 g/dL (11.5-15.3) 04/08/22 11:47 Hct 41.0 % (37.0-47.0) 04/08/22 11:47 MCV 88.2 fl (81-99) 04/08/22 11:47 MCH 29.2 pg (28.0-34.0) 04/08/22 11:47 MCHC 33.2 g/dL (30.0-36.0) 04/08/22 11:47 RDW 13.8 % (12.1-15.1) 04/08/22 11:47 Plt Count 374 10^3/cmm (130-400) 04/08/22 11:47 MPV 9.0 fL (7.4-10.4) 04/08/22 11:47 Neut % (Auto) 71.8 % 04/08/22 11:47 Lymph % (Auto) 19.8 % 04/08/22 11:47 Runnels % (Auto) 6.1 % 04/08/22 11:47 Eos % (Auto) 0.8 % 04/08/22 11:47 Baso % (Auto) 0.9 % 04/08/22 11:47 Neut # (Auto) 6.35 10^3/uL (1.8-7.7) 04/08/22 11:47 Lymph # (Auto) 1.8 10^3/uL (0.8-4.8) 04/08/22 11:47 Runnels # (Auto) 0.5 10^3/uL (0.2-0.9) 04/08/22 11:47 Eos # (Auto) 0.1 10^3/uL (0.0-0.8) 04/08/22 11:47 Baso # (Auto) 0.1 10^3/uL (0.0-0.1) 04/08/22 11:47 Nucleated RBC % (auto) 0 % 04/08/22 11:47 Nucleated RBCs # 0.0 /100WBC 04/08/22 11:47 Sodium 142 mmol/L (136-145) 04/08/22 11:47 Potassium 3.9 mmol/L (3.5-5.1) 04/08/22 11:47 Chloride 104 mmol/L (98-107) 04/08/22 11:47 Carbon Dioxide 22 mmol/L (22-29) 04/08/22 11:47 Anion Gap 19.9 (5-19) H 04/08/22 11:47 BUN 11 mg/dL (6-20) 04/08/22 11:47 Creatinine 0.6 mg/dL (0.5-0.9) 04/08/22 11:47 GFR Calculation 114.4 mL/min (90-130) 04/08/22 11:47 Glucose 101 mg/dL (65-115) 04/08/22 11:47 Calculated Osmolality 294 mOsm/kg (285-295) 04/08/22 11:47 Calcium 8.0 mg/dL (8.5-10.5) L 04/08/22 11:47 Total Bilirubin 0.4 mg/dL (0.15-1.2) 04/08/22 11:47 AST 41 U/L (0-32) H 04/08/22 11:47 ALT 33 U/L (0-33) 04/08/22 11:47 Alkaline Phosphatase 79 U/L (35-105) 04/08/22 11:47 Total Protein 7.1 g/dL (6.6-8.7) 04/08/22 11:47 Albumin 4.2 g/dL (3.5-5.2) 04/08/22 11:47 Globulin 2.9 g/dL (1.3-4.6) 04/08/22 11:47 TSH 0.83 uIU/mL (0.27-4.20) 04/08/22 11:47 HCG, Qual Negative (Negative) 04/08/22 13:14 Urine Color Yellow (Yellow) 04/08/22 13:14 Urine Appearance Clear (CLEAR) 04/08/22 13:14 Urine pH 6 (5-7) 04/08/22 13:14 Ur Specific [place] 1.020 (1.005-1.030) 04/08/22 13:14 Urine Protein Trace (Negative) 04/08/22 13:14 Urine Glucose (UA) Norm (Normal) 04/08/22 13:14 Urine Ketones 1+ (Negative) H 04/08/22 13:14 Urine Blood Neg (Negative) 04/08/22 13:14 Urine Nitrate Negative (Negative) 04/08/22 13:14 Urine Bilirubin Neg (Negative) 04/08/22 13:14 Urine Urobilinogen 1 mg/dL (Negative) H 04/08/22 13:14 Ur Leukocyte Esterase Negative (Negative) 04/08/22 13:14 Urine RBC 0-4 /hpf (0-2) H 04/08/22 13:14 Urine WBC 0-4 /hpf (0-5) H 04/08/22 13:14 Ur Squamous Epith Cells 0-4 /hpf (0-5) H 04/08/22 13:14 Amorphous Sediment Not Reportable 04/08/22 13:14 Urine Bacteria 1+ /hpf (NONE) H 04/08/22 13:14 Salicylates 1.1 mg/dL (3-10) L 04/08/22 11:47 Urine Opiates Screen Negative ng/mL (Negative) 04/08/22 13:14 Acetaminophen < 5.0 ug/mL (10-30) L 04/08/22 11:47 Ur Barbiturates Screen Negative ng/mL (Negative) 04/08/22 13:14 Ur Phencyclidine Scrn Negative ng/mL (Negative) 04/08/22 13:14 Ur Amphetamines Screen Negative ng/mL (Negative) 04/08/22 13:14 U Benzodiazepines Scrn Positive ng/mL (Negative) H 04/08/22 13:14 Urine Cocaine Screen Negative ng/mL (Negative) 04/08/22 13:14 U Marijuana (THC) Screen Negative ng/mL (Negative) 04/08/22 13:14 Ethyl Alcohol 262 mg/dL (0-10) H 04/08/22 11:47 Influenza Type A Ag negative (Negative) 04/08/22 12:51 Influenza Type B Ag negative (Negative) 04/08/22 12:51 SARS-CoV-2 Ag (Rapid) negative (Negative) 04/08/22 12:51 Discharge Plan Discharge Patient Disposition: Home Clinical Impression: Alcoholic intoxication, Alcohol use disorder, Depression Condition: Stable Prescriptions: No Action bupropion HCl [Wellbutrin XL] 150 mg tablet extended release 24 hr 150 mg PO DAILY 30 Days Qty: 30 1RF fluoxetine 20 mg capsule 60 mg PO DAILY Qty: 90 1RF ondansetron 4 mg tablet,disintegrating 4 mg PO Q8H PRN (Reason: nausea and vomiting) Qty: 20 0RF Probiotic Blend 2 billion cell-50 mg Capsule 1 cap PO DAILY Rx Instructions: give with meal/snack Discharge Orders: Discharge ED (Routine); Ordered 04/08/22 Ordered By: Ba Bush Discharge Diet: Usual diet Discharge Activity: Resume usual activity Patient Instructions: Depression (ED), Abuse of Alcohol (ED) Activity Restrictions/Additional Instructions: Thank you for visiting the emergency department. You were seen and evaluated for abuse of alcohol, alcohol intoxication, and depression. After ED evaluation and evaluation by the psychiatry service we will plan to leave. Please follow-up with your primary care provider. Please stop using alcohol, failure to stop using alcohol will likely lead to or worse. Given your alcohol level you should not drive or operate any machinery for 24 hours, I also recommend going to a location where someone can watch it closely. Return to the emergency department for anything that you are concerned about and feel needs emergency department evaluation. Coding Level of Care Code ED Teacher Advisor for Krzysztof Aburto
[2022-04-08 12:02] LABS: Basophils # 0.1 10^3/uL (0.0-0.1); Basophils % 0.9 %; Eosinophils # 0.1 10^3/uL (0.0-0.8); Eosinophils % 0.8 %; Hemoglobin 13.6 g/dL (11.5-15.3); Lymphocytes # 1.8 10^3/uL (0.8-4.8); Lymphocytes % 19.8 %; Mean Corpuscular HGB Conc 33.2 g/dL (30.0-36.0); Mean Corpuscular Hemoglobin 29.2 pg (28.0-34.0); Mean Corpuscular Volume 88.2 fl (81-99); Monocytes # 0.5 10^3/uL (0.2-0.9); Monocytes % 6.1 %; Neutrophils # 6.35 10^3/uL (1.8-7.7); Neutrophils % 71.8 %; Nucleated Red Blood Cells % 0 %; Platelet Count 374 10^3/cmm (130-400); Red Blood Count 4.65 10^6/uL (4.1-5.3); Red Cell Distribution Width 13.8 % (12.1-15.1); White Blood Count 8.8 10^3/uL (4.0-10.0)
--- NOTE | 2022-04-08 12:06 | ECG_ITS ---
[facility] Test Date: 2022-04-08 Pat Name: Alisa Carey Department: Room: Gender: Female Clocksmith: : 1985 Requested By: Ba Bush Order Number: [id number] Rowland MD: Vanessa Adams M.D. Measurements Intervals [place] Rate: 94 P: 57 NH: 176 QRS: -7 QRSD: 92 T: 38 QT: 361 QTc: 452 Interpretive Statements SINUS RHYTHM No previous ECG available for comparison Electronically Signed On 04-09-2022 7:56:45 MARKETING PROGRAMS SPECIALIST by Vanessa Adams M.D. [id number]
[2022-04-08 12:32] LABS: Alanine Aminotransferase 33 U/L (0-33); Albumin Level 4.2 g/dL (3.5-5.2); Alcohol Level 262 mg/dL (0-10); Alkaline Phosphatase 79 U/L (35-105); Anion Gap 19.9 (5-19); Aspartate Amino Transferase 41 U/L (0-32); Blood Urea Nitrogen 11 mg/dL (6-20); Carbon Dioxide 22 mmol/L (22-29); Chloride 104 mmol/L (98-107); Globulin 2.9 g/dL (1.3-4.6); Glomerular Filtration Rate 114.4 mL/min (90-130); Glucose 101 mg/dL (65-115); Osmolality Calculated 294 mOsm/kg (285-295); Potassium 3.9 mmol/L (3.5-5.1); Salicylate 1.1 mg/dL (3-10); Sodium 142 mmol/L (136-145); Thyroid Stimulating Hormone 0.83 uIU/mL (0.27-4.20); Total Bilirubin 0.4 mg/dL (0.15-1.2); Total Protein 7.1 g/dL (6.6-8.7)
[2022-04-08 12:34] LABS: Acetaminophen < 5.0 ug/mL (10-30)
[2022-04-08] MEDS: ondansetron 2 mg/ML SDV 2 mL 4 MG IVP (12:44)
[2022-04-08] MEDS: sodium chloride 0.9% 1,000 ML 999 ML IV (12:44)
[2022-04-08 13:49] LABS: HCG Qualitative Urine. Negative (Negative)
[2022-04-08 14:01] LABS: Amphetamines Screen Urine Negative (Negative); Barbiturates Screen Urine Negative (Negative); Benzodiazepines Screen Urine Positive (Negative); Cocaine Screen Urine Negative (Negative); Opiate Screen Urine Negative (Negative); PCP Screen Urine Negative (Negative); THC Screen Urine Negative (Negative)
[2022-04-08 14:45] LABS: Add Urine Microscopic? YES; Bacteria Urine 1+ /hpf; Bilirubin Urine Neg (Negative); Blood Urine Neg (Negative); Glucose Urine UA Norm (Normal); Ketones Urine 1+ (Negative); Leukocyte Esterase Urine Negative (Negative); Nitrate Urine Negative (Negative); Protein Urine Trace (Negative); RBC Urine 0-4 /hpf (0-2); Squamous Epithelial Cell Urine 0-4 /hpf (0-5); Urine Appearance Clear (CLEAR); Urine Color Yellow (Yellow); Urobilinogen Urine 1 mg/dL (Negative); WBC Urine 0-4 /hpf (0-5); pH Urine 6 (5-7)
[2022-04-08 14:46] LABS: Add Urine Culture? No
[2022-04-08] MEDS: metoclopramide 5 mg/mL SDV 2 mL 10 MG IVP (14:47)
[2022-04-08 14:52] LABS: Influenza A by IFA negative (Negative); Influenza B by IFA negative (Negative); SARS Covid-2 Antigen negative (Negative)
== END 2022-04-08 17:45 | disposition home or self-care (01) ==
PROVIDERS: Emergency Provider Emergency Medicine
DX: F10.929 Alcohol use, unspecified with intoxication, unspecified (principal); Y90.8 Blood alcohol level of 240 mg/100 ml or more; Z20.822 Contact with and (suspected) exposure to COVID-19; F17.210 Nicotine dependence, cigarettes, uncomplicated
CPT/HCPCS: 36415; 80053; 80306; 80307; 81001; 81025; 84443; 85025; 87426; 87804; 93005; 96361; 96374; 96375; 99284; J2405; J2765; J7030

== ENCOUNTER → 2022-05-26 14:15 | Outpatient (BNVA) | payer OTHER, SELFPAY | PROVIDERS: Visit Provider Nurse Practitioner Psychiatric/Mental Health | DX: Z79.899 Other long term (current) drug therapy (principal); F10.20 Alcohol dependence, uncomplicated; F33.1 Major depressive disorder, recurrent, moderate; F41.1 Generalized anxiety disorder; F40.10 Social phobia, unspecified; F17.218 Nicotine dependence, cigarettes, with other nicotine-induced disorders | CPT/HCPCS: 80053; 82607; 82652 ==

== ENCOUNTER → 2022-06-01 16:00 | Outpatient (BNVA) | payer MEDICAID, SELFPAY | PROVIDERS: Visit Provider Family Medicine | DX: D23.62 Other benign neoplasm of skin of left upper limb, including shoulder (principal) | CPT/HCPCS: 88304; 88342 ==

== ENCOUNTER → 2022-06-22 14:00 | Outpatient (BNVA) | payer MEDICAID, SELFPAY | PROVIDERS: Visit Provider Nurse Practitioner Women's Health | DX: Z32.00 Encounter for pregnancy test, result unknown (principal); Z20.2 Contact with and (suspected) exposure to infections with a predominantly sexual mode of transmission | CPT/HCPCS: 81025; 87491; 87591; 87661 ==

== ENCOUNTER → 2022-07-05 13:03 | Outpatient (BNVA) | payer MEDICAID, SELFPAY | PROVIDERS: Referring Provider Family Medicine; Visit Provider Nurse Practitioner Family | DX: D22.39 Melanocytic nevi of other parts of face (principal); L81.4 Other melanin hyperpigmentation; D22.5 Melanocytic nevi of trunk; Z71.89 Other specified counseling; L55.9 Sunburn, unspecified; L72.0 Epidermal cyst; D23.62 Other benign neoplasm of skin of left upper limb, including shoulder | CPT/HCPCS: 11102; 99203 ==

== ENCOUNTER → 2022-07-13 12:12 | Outpatient (BNVA) | payer MEDICAID, SELFPAY | PROVIDERS: Visit Provider Nurse Practitioner Women's Health | DX: Z36.87 Encounter for antenatal screening for uncertain dates (principal); Z34.91 Encounter for supervision of normal pregnancy, unspecified, first trimester; Z3A.01 Less than 8 weeks gestation of pregnancy | CPT/HCPCS: 76817; 84315 ==

== ENCOUNTER → 2022-08-09 12:09 | Outpatient (BNVA) | payer MEDICAID, SELFPAY | PROVIDERS: Visit Provider Obstetrics & Gynecology | DX: Z34.80 Encounter for supervision of other normal pregnancy, unspecified trimester (principal) | CPT/HCPCS: 80307; 81000; 82950; 85027; 86592; 86762; 86803; 86850; 86900; 87086; 87340; 87624; 87806 ==

== ENCOUNTER → 2022-08-29 15:05 | Outpatient (BNVA) | payer MEDICAID, SELFPAY | PROVIDERS: Visit Provider Emergency Medicine | DX: R39.9 Unspecified symptoms and signs involving the genitourinary system (principal); N30.00 Acute cystitis without hematuria | CPT/HCPCS: 81000; 87086 ==

== ENCOUNTER → 2022-09-02 10:40 | Outpatient (BNVA) | payer MEDICAID, SELFPAY | PROVIDERS: Visit Provider Obstetrics & Gynecology | DX: Z34.80 Encounter for supervision of other normal pregnancy, unspecified trimester (principal) | CPT/HCPCS: 81000 ==

== ENCOUNTER → 2022-09-30 14:31 | Outpatient (BNVA) | payer MEDICAID, SELFPAY | PROVIDERS: Visit Provider Obstetrics & Gynecology | DX: Z34.80 Encounter for supervision of other normal pregnancy, unspecified trimester (principal) | CPT/HCPCS: 76805; 87086 ==

== ENCOUNTER → 2022-10-19 13:24 | Outpatient (BNVA) | payer MEDICAID, SELFPAY | PROVIDERS: Visit Provider Obstetrics & Gynecology | DX: Z34.80 Encounter for supervision of other normal pregnancy, unspecified trimester (principal) | CPT/HCPCS: 81000 ==

== ENCOUNTER → 2022-10-28 11:17 | Outpatient (BNVA) | payer MEDICAID, SELFPAY | PROVIDERS: Visit Provider Nurse Practitioner Women's Health | DX: Z34.90 Encounter for supervision of normal pregnancy, unspecified, unspecified trimester (principal) | CPT/HCPCS: 76816 ==

== ENCOUNTER → 2022-11-16 10:25 | Outpatient (BNVA) | payer MEDICAID, SELFPAY | PROVIDERS: Visit Provider Nurse Practitioner Women's Health | DX: Z34.80 Encounter for supervision of other normal pregnancy, unspecified trimester (principal); A59.9 Trichomoniasis, unspecified | CPT/HCPCS: 80307; 81000; 87491; 87591 ==

== ENCOUNTER → 2022-12-01 11:37 | Outpatient (BNVA) | payer MEDICAID, SELFPAY | PROVIDERS: Visit Provider Obstetrics & Gynecology | DX: Z34.80 Encounter for supervision of other normal pregnancy, unspecified trimester (principal) | CPT/HCPCS: 81000; 82950; 85025 ==

== ENCOUNTER → 2022-12-10 13:46 | Outpatient (BNVA) | payer MEDICAID, SELFPAY | PROVIDERS: Visit Provider Obstetrics & Gynecology | DX: Z34.80 Encounter for supervision of other normal pregnancy, unspecified trimester (principal); R31.9 Hematuria, unspecified | CPT/HCPCS: 81000; 87086 ==

== ENCOUNTER → 2022-12-15 11:50 | Outpatient (BNVA) | payer MEDICAID, SELFPAY | PROVIDERS: Visit Provider Obstetrics & Gynecology | DX: Z34.80 Encounter for supervision of other normal pregnancy, unspecified trimester (principal) | CPT/HCPCS: 81000 ==

== ENCOUNTER → 2023-01-05 12:59 | Outpatient (BNVA) | payer MEDICAID, SELFPAY | PROVIDERS: Visit Provider Obstetrics & Gynecology | DX: Z34.80 Encounter for supervision of other normal pregnancy, unspecified trimester (principal) | CPT/HCPCS: 81000 ==

== ENCOUNTER → 2023-01-12 14:10 | Outpatient (BNVA) | payer MEDICAID, SELFPAY | PROVIDERS: Visit Provider Nurse Practitioner Women's Health | DX: Z34.80 Encounter for supervision of other normal pregnancy, unspecified trimester (principal) | CPT/HCPCS: 81000 ==

== ENCOUNTER → 2023-01-26 09:10 | Outpatient (BNVA) | payer MEDICAID, SELFPAY | PROVIDERS: Visit Provider Obstetrics & Gynecology | DX: Z34.80 Encounter for supervision of other normal pregnancy, unspecified trimester (principal) | CPT/HCPCS: 81000; 87081 ==

== ENCOUNTER → 2023-02-02 08:48 | Day surgery (SDC) | payer MEDICAID, SELFPAY ==
--- NOTE | 2023-02-02 10:08 | ANES.PREANE2 ---
Pre-Anesthetic Assessment Height/Weight: Height 1.63 m Operation Date: 02/15/23 12:20 Proposed Procedures p Repeat section 62203,O34.219(Not Applicable) - Chang Coello MD Familial anesthetic complications: none Was Beta Mode taken within 24 hours: N/A Was Clonidine taken within 24 hours: N/A Social No tobacco Exam alert, oriented x 3, clear to auscultation bilaterally and regular rate & rhythm Airway Submandibular: within normal limits Cervical ROM: within normal limits Mallampati: Class II Neuropsych Anxiety and Depression Anesthetic Plan ASA status: 2 Anesthesia: Regional (specify below) (SAB) Medications/Allergies Home Medications Medication Instructions Recorded Confirmed Last Taken Type L.acidophil-L.casei-B.bifid-B.longum-FOS 1 cap PO DAILY 04/07/22 02/02/23 Unknown History 2 billion cell-50 mg capsule (Probiotic Blend) bupropion HCl 150 mg 24 hr tablet, 150 mg PO .morning 30 days #90 tabs 07/30/22 02/02/23 Unknown Rx extended release (Wellbutrin XL) prenat.vits,nehemias,kaw-bjro-qqgzn 1 tab PO DAILY 08/09/22 02/02/23 Unknown History fluoxetine 40 mg capsule (Prozac) 40 mg PO QAM #90 caps 10/29/22 02/02/23 Unknown Rx metronidazole 0.75 % (37.5 mg/5 1 appful vaginal DAILY 5 days #70 12/01/22 02/02/23 Unknown Rx gram) vaginal gel grams nitrofurantoin 100 mg PO DAILY #30 caps 01/05/23 02/02/23 Unknown Rx monohydrate/macrocrystals 100 mg capsule (Macrobid) Allergies Allergy/AdvReac Type Severity Reaction Status Date / Time Sulfa (Sulfonamide Allergy Intermediate ALGY-Rash Verified 02/02/23 09:55 Antibiotics) PFSH Anesthesia Medical History Alcohol use disorder, moderate, dependence Generalized anxiety disorder Major depressive disorder, recurrent, moderate No pertinent past medical history neghx: htn,dm,thyroid,dvt/pe PCP: Dr. Khanna Psychiatric care Social anxiety disorder Surgical History Hx of section (~11/2016) Primary for breech presentation; failed external version x 2. [place]. Family History (Reviewed 01/12/23 @ 14:12 by Carla Apple [facility]) Father Hypertension Suicide Psychiatric illness Hyperlipidemia Mother Hypertension Psychiatric illness Hyperlipidemia Grandmother Uterine cancer maternal Breast cancer paternal Psychiatric illness maternal Data Anesthesia Cardiac Studies: No Data to Display
--- NOTE | 2023-02-15 08:09 | PM.OBGYHP ---
Providers/Chief Complaint Admitting Physician: Chang Coello MD Primary INSIDE SALES TRAINER: Chang Coello MD Chief Complaint: epi Consult HPI INSIDE SALES TRAINER History of Present Illness 37 y.o. LMP May 18, 2022; EDC February 22, 2023 c/w 7 weeks sono at 39 w 0 d h/o previous now admitted for scheduled repeat no c/o + active movements Medications/Allergies Home Medications Medication Instructions Recorded Confirmed Last Taken Type L.acidophil-L.casei-B.bifid-B.longum-FOS 1 cap PO DAILY 04/07/22 02/15/23 Unknown History 2 billion cell-50 mg capsule (Probiotic Blend) bupropion HCl 150 mg 24 hr tablet, 150 mg PO .morning 30 days #90 tabs 07/30/22 02/15/23 02/09/23 08:00 Rx extended release (Wellbutrin XL) prenat.vits,nehemias,[id number] 1 tab PO DAILY 08/09/22 02/15/23 02/09/23 08:00 History fluoxetine 40 mg capsule (Prozac) 40 mg PO QAM #90 caps 10/29/22 02/15/23 02/08/23 08:00 Rx metronidazole 0.75 % (37.5 mg/5 1 appful vaginal DAILY 5 days #70 12/01/22 02/15/23 Unknown Rx gram) vaginal gel grams nitrofurantoin 100 mg PO DAILY #30 caps 01/05/23 02/15/23 02/09/23 08:00 Rx monohydrate/macrocrystals 100 mg capsule (Macrobid) metronidazole 500 mg tablet 500 mg PO BID #14 tabs 02/02/23 02/15/23 02/09/23 08:00 Rx Allergies Allergy/AdvReac Type Severity Reaction Status Date / Time Sulfa (Sulfonamide Allergy Intermediate ALGY-Rash Verified 02/09/23 08:11 Antibiotics) PFSH INSIDE SALES TRAINER PFSH: Medical History Alcohol use disorder, moderate, dependence Generalized anxiety disorder Major depressive disorder, recurrent, moderate No pertinent past medical history neghx: htn,dm,thyroid,dvt/pe PCP: Dr. Khanna Psychiatric care Social anxiety disorder Surgical History Hx of section (~11/2016) Primary for breech presentation; failed external version x 2. [place]. Family History Father Hypertension Suicide Psychiatric illness Hyperlipidemia Mother Hypertension Psychiatric illness Hyperlipidemia Grandmother Uterine cancer maternal Breast cancer paternal Psychiatric illness maternal Other Female Reproductive History: Hx Age of Menarche: 13 History History History 2 Term 1 0 Miscarriages/Ectopic 0 Living Children 1 Past Pregnancies Del. Date GA/Weeks Outcome Route Wt Inf Gender Labor Lgth Comp. Anesthesia Location 12/03/16 39 live - full term 8 lb Male [facility] [place] Delivery Date: 12/03/16 Last Updated by: Kerrie Scott RN for breech presentation despite having 2 versions Care PATRICIA Calculator Estimated Delivery Date Method Current WG Current Estimate 02/22/23 LMP (Certain) 39w 0d Physical Exam Const: COMMON NORMALS: no acute distress, patient oriented x3, healthy appearing and alert Resp: COMMON NORMALS: normal respiratory effort and clear to auscultation bilaterally Cardio: COMMON NORMALS: regular rate and regular rhythm GI: COMMON NORMALS: Normal to inspection, nondistended, normoactive bowel sounds present, Soft to palpation and non-tender Results Labs OB ([facility]): Obstetrics US 10/28/22 Blood Type B Positive 08/09/22 Antibody Screen Negative 08/09/22 Hct 32.4 % (36-47) L 12/01/22 Hgb 10.40 g/dL (11.27-16.99) L 12/01/22 Rho(D) Type Positive 08/09/22 Plt Count 355 10^3/cmm (157-399) 12/01/22 Hep Bs Antigen Non-reactive (Nonreactive) 08/09/22 Hepatitis C Antibody Non-reactive (Nonreactive) 08/09/22 Rubella IgG Antibody 164.5 IU/mL (0.0-10.0) H 08/09/22 RPR Nonreactive (Nonreactive) 08/09/22 HIV 1&2 Ab & HIV 1 Ag Non-reactive (Non-Reactiv) 08/09/22 TSH 0.83 uIU/mL (0.27-4.20) 04/08/22 C.trachomatis RNA (TMA) Not detected (NOT DETECTED) 11/16/22 N.gonorrhoeae RNA (TMA) Not detected (NOT DETECTED) 11/16/22 T. vaginalis Amp RNA Not detected (NOT DETECTED) 11/16/22 Chlamydia/GC Comment See note 11/16/22 Cystic Fibrosis Screen Negative 08/09/22 Glucose 1 Hr 50 gm 121 mg/dL (85-140) 08/09/22 Gest Glucose Tolerance 102 mg/dL (70-139) 12/01/22 Hemoglobin A1c 4.7 % (4.0-6.0) 04/24/19 HCG, Qual Positive (Negative) H 06/22/22 Urine Opiates Screen Negative ng/mL (Negative) 11/16/22 Ur Barbiturates Screen Negative ng/mL (Negative) 11/16/22 Ur Phencyclidine Scrn Negative ng/mL (Negative) 11/16/22 Ur Amphetamines Screen Negative ng/mL (Negative) 11/16/22 U Benzodiazepines Scrn Positive ng/mL (Negative) H 11/16/22 Urine Cocaine Screen Negative ng/mL (Negative) 11/16/22 U Marijuana (THC) Screen Negative ng/mL (Negative) 11/16/22 Micro Urine Specimen 09/30/22 Pap Smear Interpret See note 08/09/22 A&P Assessment and plan (1) Supervision of other normal : 39 w 0 d (2) Hx of section: h/o c-s x one patient wants repeat does not want trial of labor now scheduled for repeat procedure and risks explained to patient, including, but not limited to, infection, bleeding, injury to internal organs, anesthesia, blood transfusions patient understands and wants to proceed Attestations Medical Necessity Statement*: patient at 39 w, h/o previous c-s, admitted for scheduled repeat Coding Level of Care Code Acute Code for Chg Fwd Diagnoses Supervision of other normal Z34.80 Hx of section Z98.891 Time Spent (min) 20
--- NOTE | 2023-02-15 11:49 | ANES.PREANE2 ---
Pre-Anesthetic Assessment Height/Weight: Height 1.63 m Preop Diagnosis: previous c/s Operation Date: 02/15/23 12:20 Proposed Procedures p Repeat section 87264,O34.219(Not Applicable) - Chang Coello MD Familial anesthetic complications: None Social Tobacco Exam alert, oriented x 3, clear to auscultation bilaterally and regular rate & rhythm Airway Submandibular: within normal limits Cervical ROM: within normal limits Mallampati: Class II Dentition: other Comments: Comments: jewelry in mouth, ring under tongue is not removable per patient. History/ROS No significant history except as noted and No significant complaints Pulmonary None reported CV/HEM None reported None reported Hepatic None reported GI Gastroesophageal Reflux Disease Metabolic Morbid Obesity Musc/skel Scoliosis ( mild ) Neuropsych Anxiety and Depression Anesthetic Plan ASA status: 2 Anesthesia: Anesthesia Evaluation, General and Regional (specify below) (spinal) Risk of > 500 ml blood loss (7ml/kg in children): Yes, adequate IV access and fluids planned Medications/Allergies Home Medications Medication Instructions Recorded Confirmed Last Taken Type L.acidophil-L.casei-B.bifid-B.longum-FOS 1 cap PO DAILY 04/07/22 02/15/23 Unknown History 2 billion cell-50 mg capsule (Probiotic Blend) bupropion HCl 150 mg 24 hr tablet, 150 mg PO .morning 30 days #90 tabs 07/30/22 02/15/23 02/09/23 08:00 Rx extended release (Wellbutrin XL) prenat.vits,nehemias,yfn-wtnf-[id number] 1 tab PO DAILY 08/09/22 02/15/23 02/09/23 08:00 History fluoxetine 40 mg capsule (Prozac) 40 mg PO QAM #90 caps 10/29/22 02/15/23 02/08/23 08:00 Rx metronidazole 0.75 % (37.5 mg/5 1 appful vaginal DAILY 5 days #70 12/01/22 02/15/23 Unknown Rx gram) vaginal gel grams nitrofurantoin 100 mg PO DAILY #30 caps 01/05/23 02/15/23 02/09/23 08:00 Rx monohydrate/macrocrystals 100 mg capsule (Macrobid) metronidazole 500 mg tablet 500 mg PO BID #14 tabs 02/02/23 02/15/23 02/09/23 08:00 Rx Allergies Allergy/AdvReac Type Severity Reaction Status Date / Time Sulfa (Sulfonamide Allergy Intermediate ALGY-Rash Verified 02/09/23 08:11 Antibiotics) PFSH Anesthesia Medical History Alcohol use disorder, moderate, dependence Generalized anxiety disorder Major depressive disorder, recurrent, moderate No pertinent past medical history neghx: htn,dm,thyroid,dvt/pe PCP: Dr. Khanna Psychiatric care Social anxiety disorder Surgical History Hx of section (~11/2016) Primary for breech presentation; failed external version x 2. [place]. Family History Father Hypertension Suicide Psychiatric illness Hyperlipidemia Mother Hypertension Psychiatric illness Hyperlipidemia Grandmother Uterine cancer maternal Breast cancer paternal Psychiatric illness maternal Data Anesthesia Cardiac Studies: No Data to Display
== END ==
LOC: OPS 08:50
PROVIDERS: Visit Provider Obstetrics & Gynecology
PROC: (CPT 59514; principal; 2023-02-15 12:00)
DX: Z01.818 Encounter for other preprocedural examination (principal); Z98.891 History of uterine scar from previous surgery
CPT/HCPCS: 51702; 59409; 81000

== ENCOUNTER 2023-02-09 10:45 | Outpatient (CLI) | payer MEDICAID, SELFPAY ==
[2023-02-09 10:58] VITALS: RESP 17
[2023-02-09 11:05] VITALS: BP 130/63; PULSE 106
[2023-02-09 11:20] VITALS: BP 130/61; PULSE 104
[2023-02-09 11:35] VITALS: BP 120/63; PULSE 93
[2023-02-09 11:50] VITALS: BMI 47.0
== END 2023-02-09 11:45 | disposition home or self-care (01) ==
LOC: OPOB 10:54 → OBGYN 10:55
PROVIDERS: Absent Provider Obstetrics & Gynecology; Visit Provider Obstetrics & Gynecology
DX: O16.9 Unspecified maternal hypertension, unspecified trimester (principal); Z3A.00 Weeks of gestation of pregnancy not specified
CPT/HCPCS: 59025; 81000; 99211

== ENCOUNTER 2023-02-15 10:10 | Inpatient (IN) | payer MEDICAID, SELFPAY ==
[2023-02-15] VITALS (74 sets, daily range): BP systolic 92–135; BP diastolic 48–86; PULSE 59–96; RESP 16–18; TEMP 30.6–36.8; O2SAT 90–99; BMI 47.3
[2023-02-15 11:00] LABS: Basophils # 0.1 10^3/uL (0.0-0.1); Basophils % 0.4 %; Eosinophils # 0.3 10^3/uL (0.0-0.8); Eosinophils % 1.8 %; Hematocrit 33.8 % (36-47); Lymphocytes # 1.9 10^3/uL (0.8-4.8); Lymphocytes % 13.7 %; Mean Corpuscular Volume 81.4 fl (85-98); Mean Platelet Volume 10.3 fL (7.4-10.4); Monocytes # 0.9 10^3/uL (0.2-0.9); Monocytes % 6.3 %; Neutrophils # 10.73 10^3/uL (1.8-7.7); Neutrophils % 76.6 %; Nucleated Red Blood Cells % 0 %; Platelet Count 320 10^3/cmm (157-399); Red Blood Count 4.15 10^6/uL (3.85-5.65); Red Cell Distribution Width 13.9 % (12.1-15.1); White Blood Count 13.99 10^3/uL (3.29-11.43)
[2023-02-15] MEDS: lactated ringers 1,000 ML 999 ML IV (11:00)
[2023-02-15 11:04] LABS: Amphetamines Screen Urine Negative (Negative); Barbiturates Screen Urine Negative (Negative); Benzodiazepines Screen Urine Positive (Negative); Cocaine Screen Urine Negative (Negative); Opiate Screen Urine Negative (Negative); PCP Screen Urine Negative (Negative); THC Screen Urine Negative (Negative)
[2023-02-15] MEDS: metoclopramide 5 mg/mL SDV 2 mL 10 MG IVP (11:55)
[2023-02-15] MEDS: ceFAZolin 2,000 MG in sodium chloride 0.9% (plus) 50 ML 100 MG IV (11:55)
[2023-02-15] MEDS: citric acid-sodium citrate 30 mL UDC PO (11:55)
[2023-02-15] MEDS: famotidine 20 mg/2 mL INJ IVP (11:55)
[2023-02-15] MEDS: docusate sodium 100 mg Capsule PO (17:54)
[2023-02-15] MEDS: ketorolac 30 mg/mL INJ IVP (19:48)
[2023-02-15] MEDS: simethicone 80 mg Chew PO (19:48)
[2023-02-15] MEDS: HYDROcodone-acetaminophen 5-325 mg Tablet PO (22:14)
[2023-02-15] MEDS: lanolin oint 7 gm 1 APPLIC TOPICAL (22:18)
[2023-02-15] MEDS: sodium chloride 0.9% 500 ML 999 ML IV (22:39)
--- NOTE | 2023-02-15 22:45 | P.OP_ITS ---
Operative Report Date of procedure: February 15, 2023 Pre-op diagnosis: 39 weeks gestation Previous x one For repeat Post-op diagnosis: same Post-op findings: Vigorous female infant Normal placenta and cord Normal uterus, tubes, and ovaries Procedure done: Repeat low-transverse Implants: none Specimens removed/disposition: placenta and cord, discarded Surgeon: Chang Coello MD Anesthesia: Spinal Estimated blood loss (mL): 500 Complications: none Condition: stable Brief History: 37 y.o. at 39 w 0 d h/o previous now admitted for scheduled repeat Procedure: Indications: Patient with previous , scheduled for repeat . Informed consent signed. Patient was taken to the operating room, placed supine in the left lateral tilt position. Spinal anesthesia and a Castro catheter were already placed. The abdomen was prepped and draped in the usual sterile fashion. A Pfannenstiel incision was made over an old scar and carried down through skin and subcutaneous tissue and fascia. The fascial incision was extended laterally with Guardado scissors. The fascia was from the underlying rectus muscles. The rectus muscles were split in the midline. The peritoneum was entered bluntly avoiding underlying organs. A bladder flap was created. A low transverse uterine incision was made and extended laterally bluntly avoiding the uterine vessels. Clear amniotic fluid was seen. The baby was delivered in cephalic presentation atraumatically. The baby was suctioned. The cord was clamped and cut and the baby was handed to an awaiting motor teacher. Cord blood was obtained. The placenta was manually removed intact. The uterus was not exteriorized. The uterine cavity was bluntly curetted with wet laps. The uterine incision was then closed with a continuous interlocking stitch of O chromic. Adequate hemostasis was seen. No bleeding was seen. The uterine incision was again inspected and found to have good hemostasis. The fascia was then closed with a continuous stitch of O-Vicryl. Additional interrupted stitches of O-Vicryl were used for fascial closure. The subcutaneous tissue was irrigated and inspected for hemostasis. The skin was then reapproximated using Insorb manda. Postoperative condition stable Disposition to recovery room Estimated blood loss 500 cc, no replacement Sponge, needle, and instrument counts were correct x two There were no complications
[2023-02-16] MEDS: ketorolac 30 mg/mL INJ IVP (00:57)
[2023-02-16 01:24] LABS: Hematocrit 28.4 % (36-47); Mean Corpuscular HGB Conc 31.7 g/dL (30-55); Mean Corpuscular Hemoglobin 26.8 pg (27-33); Mean Corpuscular Volume 84.5 fl (85-98); Mean Platelet Volume 10.9 fL (7.4-10.4); Platelet Count 305 10^3/cmm (157-399); Red Blood Count 3.36 10^6/uL (3.85-5.65); Red Cell Distribution Width 13.8 % (12.1-15.1); White Blood Count 14.81 10^3/uL (3.29-11.43)
[2023-02-16 04:57] VITALS: PULSE 85; O2SAT 100
[2023-02-16 04:58] VITALS: BP 124/78; PULSE 75; RESP 18; TEMP 36.6
[2023-02-16] MEDS: HYDROcodone-acetaminophen 5-325 mg Tablet PO ×3 (05:13→14:25)
[2023-02-16] MEDS: ibuprofen 800 mg tablet PO ×2 (09:53→16:20)
[2023-02-16] MEDS: prenatal vitamin Capsule 1 CAP PO (09:53)
[2023-02-16] MEDS: ferrous sulfate EC 325 mg Tablet PO (09:53)
[2023-02-16] MEDS: docusate sodium 100 mg Capsule PO (09:54)
--- NOTE | 2023-02-16 14:50 | P.PN_ITS ---
ACQUISITION ASSOCIATE Subjective 2 Subjective: Interval history: Mild incisional pain, relieved with pain meds eating, voiding, ambulating well no bleeding wants to go home without any difficulties Labor: Amniotic Membrane Status: Intact Monitor Mode: External C ontraction Pattern: Regular Status: Category I Vitals/I&O/Wt Last Vital Signs Temp 98.6 F 02/16/23 17:00 Pulse 108 H 02/16/23 17:00 Resp 16 02/16/23 17:00 BP 136/86 02/16/23 17:00 Pulse Ox 100 02/16/23 04:57 O2 Del Method Room Air 02/16/23 16:35 Physical Exam 2 Narrative: comfortable afebrile, VS normal Abd: soft, nontender wound clean and dry Ext: normal Urinary Catheter Management: Castro: Cath Placed During This Visit: yes, but has since been removed by the nurse Reason for Continuing Indwelling Catheter: Decision to DC Catheter Urinary Catheter Date of Insertion: 02/15/23 Urinary Catheter Time of Insertion: 12:20 Date Urinary Catheter Removed: 02/16/23 Time Urinary Catheter Discontinued: 05:03 Data 02/16/23 01:14 A&P Assessment and plan (1) S/P repeat low transverse : POD #1 repeat low-transverse doing well discharge home today instructions and precautions given call/return if fever, chills, nausea, vomiting, headaches, abdominal pain, bleeding, inability to void, swelling, leg pain; feelings of depression or mood changes; wound redness, swelling, or discharge f/u in 1 week or PRN Attestations 2 Medical Necessity Statement*: patient s/p repeat , plan discharge home today Coding Level of Care Code Acute Code for Chg Fwd Diagnoses S/P repeat low transverse Z98.891 Time Spent (min) 20
--- NOTE | 2023-02-16 14:50 | P.DS_ITS ---
Discharge Providers ONLINE CONTENT COORDINATOR Date of Admission: 02/15/23 10:10 Date of Discharge: 02/16/23 Attending Provider at Admission: Chang Coello MD Attending Provider at Discharge: Chang Coello MD Consults: none Primary ONLINE CONTENT COORDINATOR: Chang Coello MD Diagnoses at Discharge Discharge Diagnosis (1) S/P repeat low transverse : Details from hospital stay: patient underwent repeat low-transverse without any complications patient did well postoperatively wanted to go home on postoperative day #1 patient was discharged home on POD #1 Status: Acute Reason for Visit Reason for Visit: CSection Brief History: 37 y.o. at 39 w 0 d h/o previous wanted repeat Hospital Course Hospital Course patient underwent repeat low-transverse without any complications patient did well postoperatively wanted to go home on postoperative day #1 patient was discharged home on POD #1 Information Peripartum Data: Infant Delivery Method: complications: none Physical Exam Narrative: comfortable afebrile, VS normal Abd: soft, nontender wound clean and dry Ext: normal Urinary Catheter Management: Castro: Cath Placed During This Visit: yes, but has since been removed by the nurse Reason for Continuing Indwelling Catheter: Decision to DC Catheter Urinary Catheter Date of Insertion: 02/15/23 Urinary Catheter Time of Insertion: 12:20 Date Urinary Catheter Removed: 02/16/23 Time Urinary Catheter Discontinued: 05:03 History History History 2 Term 1 0 Miscarriages/Ectopic 0 Living Children 1 Past Pregnancies Del. Date GA/Weeks Outcome Route Wt Inf Gender Labor Lgth Comp. Anesth esia Location 12/03/16 39 live - full term 8 lb Male [facility] [place] Delivery Date: 12/03/16 Last Updated by: Kerrie Scott RN for breech presentation despite having 2 versions Discharge Data Studies Completed and Pending Pending at discharge Category Date Time Status Benzodiazepine Confirmation Ur Routine Lab 02/15/23 10:30 Received Laboratory Results WBC 14.81 10^3/uL (3.29-11.43) H 02/16/23 01:14 RBC 3.36 10^6/uL (3.85-5.65) L 02/16/23 01:14 Hgb 9.00 g/dL (11.27-16.99) L 02/16/23 01:14 Hct 28.4 % (36-47) L 02/16/23 01:14 MCV 84.5 fl (85-98) L 02/16/23 01:14 MCH 26.8 pg (27-33) L 02/16/23 01:14 MCHC 31.7 g/dL (30-55) 02/16/23 01:14 RDW 13.8 % (12.1-15.1) 02/16/23 01:14 Plt Count 305 10^3/cmm (157-399) 02/16/23 01:14 MPV 10.9 fL (7.4-10.4) H 02/16/23 01:14 Neut % (Auto) 76.6 % 02/15/23 10:51 Lymph % (Auto) 13.7 % 02/15/23 10:51 Brewster % (Auto) 6.3 % 02/15/23 10:51 Eos % (Auto) 1.8 % 02/15/23 10:51 Baso % (Auto) 0.4 % 02/15/23 10:51 Neut # (Auto) 10.73 10^3/uL (1.8-7.7) H 02/15/23 10:51 Lymph # (Auto) 1.9 10^3/uL (0.8-4.8) 02/15/23 10:51 Brewster # (Auto) 0.9 10^3/uL (0.2-0.9) 02/15/23 10:51 Eos # (Auto) 0.3 10^3/uL (0.0-0.8) 02/15/23 10:51 Baso # (Auto) 0.1 10^3/uL (0.0-0.1) 02/15/23 10:51 Nucleated RBC % (auto) 0 % 02/15/23 10:51 Nucleated RBCs # 0.0 /100WBC 02/15/23 10:51 Urine Opiates Screen Negative ng/mL (Negative) 02/15/23 10:30 Ur Barbiturates Screen Negative ng/mL (Negative) 02/15/23 10:30 Ur Phencyclidine Scrn Negative ng/mL (Negative) 02/15/23 10:30 Ur Amphetamines Screen Negative ng/mL (Negative) 02/15/23 10:30 U Benzodiazepines Scrn Positive ng/mL (Negative) H 02/15/23 10:30 Urine Cocaine Screen Negative ng/mL (Negative) 02/15/23 10:30 U Marijuana (THC) Screen Negative ng/mL (Negative) 02/15/23 10:30 Blood Type B Positive 02/15/23 10:51 Rho(D) Type Rh positive 02/15/23 10:51 Antibody Screen Negative 02/15/23 10:51 Procedures Performed repeat low-transverse Vitals Last Vital Signs Temp 98.6 F 02/16/23 17:00 Pulse 108 H 02/16/23 17:00 Resp 16 02/16/23 17:00 BP 136/86 02/16/23 17:00 Pulse Ox 100 02/16/23 04:57 O2 Del Method Room Air 02/16/23 16:35 Results Labs OB ([facility]): Obstetrics US 10/28/22 Blood Type B Positive 02/15/23 Antibody Screen Negative 02/15/23 Hct 28.4 % (36-47) L 02/16/23 Hgb 9.00 g/dL (11.27-16.99) L 02/16/23 Rho(D) Type Rh positive 02/15/23 Plt Count 305 10^3/cmm (157-399) 02/16/23 Hep Bs Antigen Non-reactive (Nonreactive) 08/09/22 Hepatitis C Antibody Non-reactive (Nonreactive) 08/09/22 Rubella IgG Antibody 164.5 IU/mL (0.0-10.0) H 08/09/22 RPR Nonreactive (Nonreactive) 08/09/22 HIV 1&2 Ab & HIV 1 Ag Non-reactive (Non-Reactiv) 08/09/22 TSH 0.83 uIU/mL (0.27-4.20) 04/08/22 C.trachomatis RNA (TMA) Not detected (NOT DETECTED) N.gonorrhoeae RNA (TMA) Not detected (NOT DETECTED) T. vaginalis Amp RNA Not detected (NOT DETECTED) 11/16/22 Chlamydia/GC Comment See note 11/16/22 Cystic Fibrosis Screen Negative 08/09/22 Glucose 1 Hr 50 gm 121 mg/dL (85-140) 08/09/22 Gest Glucose Tolerance 102 mg/dL (70-139) 12/01/22 Hemoglobin A1c 4.7 % (4.0-6.0) 04/24/19 HCG, Qual Positive (Negative) H 06/22/22 Urine Opiates Screen Negative ng/mL (Negative) 02/15/23 Ur Barbiturates Screen Negative ng/mL (Negative) 02/15/23 Ur Phencyclidine Scrn Negative ng/mL (Negative) 02/15/23 Ur Amphetamines Screen Negative ng/mL (Negative) 02/15/23 U Benzodiazepines Scrn Positive ng/mL (Negative) H 02/15/23 Urine Cocaine Screen Negative ng/mL (Negative) 02/15/23 U Marijuana (THC) Screen Negative ng/mL (Negative) 02/15/23 Micro Urine Specimen 09/30/22 Pap Smear Interpret See note 08/09/22 Discharge Plan Discharge Patient Disposition: Home Condition: Stable Prescriptions: New Percocet 5-325 mg tablet 1 tab PO BID PRN (Reason: pain) Qty: 20 0RF Continued fluoxetine [Prozac] 40 mg capsule 40 mg PO QAM Qty: 90 2RF Rx Instructions: Take one capsule every morning metronidazole 0.75 % (37.5mg/5 gram) gel 1 appful vaginal DAILY 5 Days Qty: 70 2RF metronidazole 500 mg tablet 500 mg PO BID Qty: 14 1RF nitrofurantoin monohyd/m-cryst [Macrobid] 100 mg capsule 100 mg PO DAILY Qty: 30 2RF Rx Instructions: must administer with a meal/food bupropion HCl [Wellbutrin XL] 150 mg tablet extended release 24 hr 150 mg PO .morning 30 Days Qty: 90 2RF Rx Instructions: Take one tablet every morning prenat.vits,nehemias,cum-yepf-dtisl Tablet 1 tab PO DAILY Probiotic Blend 2 billion cell-50 mg Capsule 1 cap PO DAILY Rx Instructions: give with meal/snack Discharge Orders: Discharge Order (Routine); Ordered 02/16/23 Ordered By: Chang Coello Referrals: Chang Coello MD [Physician] - 03/01/23 2:15 pm (2 week: 03/01/23 @2:15 6 week: 03/28/23 @9:00) Discharge Diet: Usual diet Discharge Activity: Increase activity as tolerated Patient Instructions: Oxycodone/Acetaminophen (By mouth) (Percocet, Roxicet), Depression (DC), Bleeding (GEN), Opioid Safety (GEN), Hemorrhage (GEN), OB [facility], OB Food/Drug Interaction Guide, OB Care at Home, Opioid Safety, OB Home Care, Abnormal Bleeding Discharge Attestations ONLINE CONTENT COORDINATOR Time Spent in Discharge Care*: less than 30 min Coding Level of Care Code Acute Code for Chg Fwd Diagnoses S/P repeat low transverse Z98.891 Time Spent (min) 20
[2023-02-16 16:35] VITALS: BP 136/86; PULSE 108; RESP 16; TEMP 37
[2023-02-16 17:00] VITALS: BP 136/86; PULSE 108; RESP 16; TEMP 37
[2023-02-22 12:39] LABS: Alprazolam, Urine Level negative; Flurazepam Metabolite negative; Lorazepam, Urine Level negative; Nordiazepam, Urine Level negative; Oxazepam, Urine Level negative; Temazepam, Urine Level negative
== END 2023-02-16 17:15 | disposition home or self-care (01) | DRG 788 ==
LOC: OPOB 10:11 → OBGYN 10:11
PROVIDERS: Admitting Provider Obstetrics & Gynecology; Visit Provider Obstetrics & Gynecology
DX: O34.211 Maternal care for low transverse scar from previous cesarean delivery (principal); N85.8 Other specified noninflammatory disorders of uterus; Z3A.39 39 weeks gestation of pregnancy; Z37.0 Single live birth
CPT/HCPCS: 36415; 51702; 59025; 80306; 80326; 85025; 85027; 86850; 86900; 96374; J0690; J1885; J2274; J2405; J2765; J3010; J3490; J7040; J7120